=== PATIENT | male | born 1930 | race Caucasian/White ===

== ENCOUNTER 2016-11-13 06:48 | Inpatient (IN) | payer MEDICARE, BC ==
[~2016-11-13] VITALS: Ht 185.4 cm; Wt 49.4 kg
[~2016-11-13 06:48] MED LIST: BACTRIM DS TABL1 TAB PO; BAYER CHEWABLE81 MG PO; FISH OIL 1,0001 CA1 PO; IPRAT-ALBUT 0.5-3 ML INH; IPRAT-ALBUT 0.5-3 ML UPD; MACRODANTIN100 MG PO; MULTIPLE VITAMI1 TA1 PO; PEPCID20 MG PO; PRAVACHOL20 MG PO; PRAVACHOL40 MG PO; SOLU-MEDRO40 MG/1 M1 IV; STERAPRED DS 1210 MG PO; TYLENOL W/CODEI1 TAB PO; VITAMIN E100 UNIT PO
--- NOTE | 2016-11-13 10:30 | NUR ---
ADMITTED TO ROOM 2223 VIA CART FROM ER COLOR PALE SKIN WARM AND DRY AT PRESENT.GUARDING RT THIGH SOME SWELLING NOTED AND TENDERNESS ALSO DAUHTER AT BEDSIDE ASSESSMENT COMPLETE.
[2016-11-13 10:33] VITALS: BP 138/68
[2016-11-13] MEDS ORDERED: FLOMAX0.4 MG PO (10:40)
[2016-11-13] MEDS ORDERED: FLUTICASONE PRO16 GM NASAL (10:40)
[2016-11-13] MEDS ORDERED: ATIVAN0.5 MG PO (10:41)
[2016-11-13] MEDS ORDERED: PROZAC10 MG PO (10:41)
[2016-11-13] MEDS ORDERED: ULTRAM50 MG PO (10:42)
[2016-11-13 11:33] VITALS: BP 138/68
--- NOTE | 2016-11-13 12:27 | NUR ---
QUIET IN ROOM AT PRESENT DENIES ANY NEEDS DAUGHTER AT BEDSIDE AT THIS TIME.
[2016-11-13 12:35] VITALS: BP 125/77
--- NOTE | 2016-11-13 13:41 | NUR ---
QUIET IN ROOM AT PRESENT DENIES ANY NEEDS AT SIDE.
--- NOTE | 2016-11-13 15:32 | NUR ---
UP AMB IN HALLWAY WITH IV WITH MOM AND DAD AT PRESENT.
--- NOTE | 2016-11-13 15:34 | NUR ---
DAUGHTER AT BEDSIDE AT PRESENT DENIES ANY NEEDS AT THIS TIME.
[2016-11-13 15:53] VITALS: BP 111/66
--- NOTE | 2016-11-13 16:05 | NUR ---
PT CONT TO C/O PAIN IN RT THIGH AREA.
--- NOTE | 2016-11-13 16:15 | NUR ---
Patient Name: SALAS RAMOS Admission Status: ER Accout number: [id number] Admission Date: 11-13-2016 : 1928 Admission Diagnosis: Attending: EAN Current LOS: 1 Anticipated DC Date: 11-15-2016 Planned Disposition: Home with Home Health Primary Insurance: MEDICARE A & B Discharge Planning Comments: CM MET WITH PATIENT REGARDING D/C NEEDS AND PLANS. PATIENT LIVES ALONE AND HIS DAUGHTER LAMINE CHECKS ON HIM DAILY. PATIENT HAS A RAMP TO ENTER HOME AND NO STEPS INSIDE. PATIENT IS INDEPENDENT WITH HIS CARE AND HAS A WALKER, SHOWER CHAIR, OXYGEN, NEBULIZER, AND PORTABLE O2 AT HOME. PATIENT USES OXYGEN AT HS. PATIENTS PCP DR. WAKEFIELD AND PHARMACY IS [facility] ON [facility] IN [place]. PATIENT IS CURRENT WITH [facility]. CM WILL CONTINUE TO FOLLOW PATIENT WITH D/C NEEDS AND PLANS. PCP DR[facility] IN [place]- [phone] LAMINE (DAUGHTER) [phone] Dumper Mold Cleaner: Yaneth Pablo Is the patient Alert and Oriented? Yes 0 * How many steps to enter\exit or inside your home? RAMP 0 * PCP DR. WAKEFIELD 0 * Pharmacy [facility] IN [place] 0 * Preadmission Environment Home Alone 0 * ADLs Independent 0 * Equipment Nebulizer Oxygen Shower Chair Walker 0 * Other Equipment PORTABLE OXYGEN 0 * List name and contact numbers for known caregivers / representatives who currently or will assist patient after discharge: LAMINE (DAUGHTER) [phone] 0 * Community resources currently utilized Home Health 0 * Please name any agencies selected above. [facility] 0 * Additional services required to return to the preadmission environment? Yes 0 * Can the patient safely return to the preadmission environment? Yes 0 * Has this patient been hospitalized within the prior 30 days at any hospital? No 0 Grand Total: 0
--- NOTE | 2016-11-13 17:06 | NUR ---
STATUS REMAINS UNCHGD AT PRESENT.
[2016-11-13 20:20] VITALS: BP 91/54
--- NOTE | 2016-11-13 20:35 | NUR ---
PT IS A&OX4 RESTING IN BED, FAMILY AT BEDSIDE. PT DENIES NEEDS AT THIS TIME. BED LOW. CL IN REACH.
[2016-11-14 00:36] VITALS: BP 115/72
[2016-11-14 04:34] VITALS: BP 142/79
[2016-11-14 05:34] LABS: BASOPHILS 0.3 % (0.0-2.0); EOSINOPHILS 0.4 % (0-7); HEMATOCRIT 39.5 % (42.0-54.0); HEMOGLOBIN 13.1 g/dL (13.5-17.5); IMMATURE GRANULOCYTES 0.1 % (0-5); LYMPHOCYTES 24.2 % (15-50); MCH 32.7 pg (26.0-34.0); MCHC 33.2 g/dL (31.0-37.0); MCV 98.5 fL (80.0-100.0); MEAN PLATELET VOLUME 9.7 fL (7.4-10.4); MONOCYTES 12.4 % (2-11); NEUTROPHILS 62.6 % (40-80); RBC 4.01 10x6/uL (4.20-6.10); RDW 13.7 % (11.5-14.5)
[2016-11-14 05:35] LABS: PLATELET COUNT 121 10x3/uL (130-400)
[2016-11-14 05:47] LABS: ANION GAP 10.1 mmol/L (8-16); CALCIUM 10.3 mg/dL (8.5-10.1); CARBON DIOXIDE 29.5 mmol/L (21.0-32.0); CREATININE - SERUM 1.2 mg/dL (0.6-1.3); POTASSIUM - SERUM 4.6 mmol/L (3.5-5.1)
[2016-11-14 10:06] VITALS: BP 136/84
[2016-11-14 10:33] VITALS: Ht 185.4 cm; Wt 49.4 kg
--- NOTE | 2016-11-14 12:15 | NUR ---
FAMILY AT SIDE. PT WITHOUT DISTRESS.CALL LIGHT IN REACH
[2016-11-14 13:01] VITALS: BP 123/76
--- NOTE | 2016-11-14 14:25 | NUR ---
FAMILY AT BEDSIDE,REMAINS WITHOUT NEEDS.CALL LIGHT IN REACH
--- NOTE | 2016-11-14 16:10 | HP ---
PATIENT: SALAS RAMOS MEDICAL RECORD: [id number] ACCOUNT: [id number] LOCATION:[id number] : [birth year] ADMISSION DATE: 11/13/16 HISTORY AND PHYSICAL EXAMINATION DATE OF ADMISSION: 11/13/2016 CHIEF COMPLAINT: Right leg and hip pain. HISTORY OF PRESENT ILLNESS: This 86-year-old white male was found on the bathroom floor by his daughter and was brought in via EMS. He had fallen down. He denied any chest pain, palpitations or aura before the fall. He was brought into the ER where x-rays were done of the right femur and right hip, and there were no fractures seen, but the patient is not able to get up and stand and walk and take care of himself. He lives alone right now. His daughter lives nearby. He is admitted for further evaluation. PAST MEDICAL HISTORY AND PAST SURGICAL HISTORY: He fell in July 2016, suffered odontoid fracture and compression fracture of T4. He was in rehab for a while before getting out. He has a history of coronary artery disease, hypertension, COPD, hyperlipidemia, and basal cell cancer. HABITS: He is a current everyday smoker. Denies alcohol or drug use. SOCIAL HISTORY: He is retired, , lives alone. FAMILY HISTORY: Significant for heart disease, hypertension, hyperlipidemia and cancer. REVIEW OF SYSTEMS: GENERAL: No major weight changes. HEENT: No particular sinus or allergy problems. RESPIRATORY: He has COPD and continues to smoke. CARDIAC: He denies any chest pain or palpitations, but has a known history of coronary artery disease with stents. GASTROINTESTINAL: Denies diarrhea, but does have some constipation. GENITOURINARY: No significant problems there. MUSCULOSKELETAL: He has joint aches and pains and wears a soft collar since his fall and neck fracture in July 2016. NEUROLOGIC: No seizures or migraine headaches. PSYCHIATRIC: He has some anxiety and depression. PHYSICAL EXAMINATION: VITAL SIGNS: Temperature 97.5, pulse 65, respirations 18, and blood pressure 118/67. GENERAL: This is a thin elderly white male who is awake, alert, does not appear in acute distress. HEENT: Grossly within normal limits. NECK: Supple. No bruit. HEART: Regular rate and rhythm without murmur. LUNGS: Clear, but distant breath sounds. ABDOMEN: Soft. EXTREMITIES: No edema. He has some tenderness in the right hip and right mid leg, minimal swelling is noted there. No ecchymosis. HISTORY AND PHYSICAL [id number] SALAS RAMOS IMAGING: X-ray done of the hip showed no acute fracture. X-ray done of the right femur showed no acute fracture. ASSESSMENT: 1. Fall with right hip and leg pain. 2. Frailty. 3. Chronic obstructive pulmonary disease. PLAN: We will have physical therapy walk him, may need to get a CT or bone scan to see for underlying fractures that cannot be seen with routine x-rays. Other tests and procedures as warranted. TRANSINT:[id number] Voice Confirmation ID: [id number] DOCUMENT ID: [id number] DMITRY WAKEFIELD MD at 1610 CC: [id number] DICTATION DATE: 11/14/16 1358 BATTERY CONTAINER INSPECTOR: 11/14/16 1430 ADM IN [facility] [address] [place] [address]
--- NOTE | 2016-11-14 16:49 | NUR ---
INFORMED FAMILY AND PT OF RIGHT HIP FX PER .PT TO BE NPO AT MIDNIGHT. TO LOOK AT CT SCAN RESULTS
--- NOTE | 2016-11-14 18:22 | NUR ---
REMAINS WITHOUT NEEDS,WITHOUT CCHANGE.CONT PLAN OF CARE
[2016-11-14 18:48] VITALS: BP 117/69
[2016-11-14 20:00] VITALS: BP 102/67
[2016-11-14 20:47] LABS: APPEARANCE CLEAR (CLEAR); BILIRUBIN NEGATIVE (NEGATIVE); COLOR YELLOW (YELLOW); GLUCOSE NEGATIVE (NEGATIVE); KETONE NEGATIVE (NEGATIVE); LEUKOCYTE ESTERASE NEGATIVE (NEGATIVE); NITRITE NEGATIVE (NEGATIVE); PROTEIN NEGATIVE (NEGATIVE); UROBILINOGEN NORMAL (NORMAL)
[2016-11-15] VITALS (17 sets, daily range): BP systolic 87–147; BP diastolic 54–87
--- NOTE | 2016-11-15 00:20 | NUR ---
RESTING WITH EYES CLOSED, RESP WITH EASE, IN NPO STATUS FOR SCHEDULED SURGERY, CL IN REACH
[2016-11-15 05:33] LABS: BASOPHILS 0.1 % (0.0-2.0); EOSINOPHILS 0.9 % (0-7); HEMATOCRIT 39.2 % (42.0-54.0); HEMOGLOBIN 13.2 g/dL (13.5-17.5); IMMATURE GRANULOCYTES 0.3 % (0-5); LYMPHOCYTES 19.6 % (15-50); MCH 32.4 pg (26.0-34.0); MCHC 33.7 g/dL (31.0-37.0); MEAN PLATELET VOLUME 9.6 fL (7.4-10.4); MONOCYTES 11.3 % (2-11); NEUTROPHILS 67.8 % (40-80); PLATELET COUNT 120 10x3/uL (130-400); RBC 4.07 10x6/uL (4.20-6.10); RDW 13.5 % (11.5-14.5); WBC 7.6 10x3/uL (4.8-10.8)
[2016-11-15 05:47] LABS: MCV 96.3 fL (80.0-100.0)
[2016-11-15 05:53] LABS: ANION GAP 11.4 mmol/L (8-16); CALCIUM 10.4 mg/dL (8.5-10.1); CARBON DIOXIDE 27.4 mmol/L (21.0-32.0); CREATININE - SERUM 1.1 mg/dL (0.6-1.3)
[2016-11-15 05:58] LABS: POTASSIUM - SERUM 3.8 mmol/L (3.5-5.1)
[2016-11-15 06:58] LABS: INR 0.98 (0.85-1.17); PROTIME 12.8 SECONDS (11.6-15.0)
--- NOTE | 2016-11-15 07:30 | NUR ---
ASSESSMENT PER FLOW SHEET.PT WITHOUT DISTRESS.NPO FOR SURGERY.HEPI CLENS COMPLETED BY TRUCK DRIVER FLATBED,CONSENTS ON CHART.CALL LIGHT IN REACH
--- NOTE | 2016-11-15 07:45 | NUR ---
TO OR VIA BED
--- NOTE | 2016-11-15 10:15 | NUR ---
BACK FROM OR.DRESSING RIGHT HIP MOHAN,DRY AND INATCT.MONITOR FOR CHANGE.
--- NOTE | 2016-11-15 18:55 | NUR ---
REMAINS WITHOUT CHANGE.PAIN CONTROLLED.CONT PLAN OF CARE
--- NOTE | 2016-11-16 03:33 | NUR ---
PATIENT SLEEPING IN BED, DAUGHTER AT BEDSIDE. DRESSING TO RIGHT HIP IS INTACT WITH SMALL AMOUNT OF STRIKE TROUGH. ICE PACK APPLIED TO SITE. DILADID ANIMAL RIDES MANAGER IS CONTROLLING THE PAIN, SOME CONFUSION NOTE BY PATIENT'S ACTIONS. ON 2LPM O2 VIA NC WITH CO2 MONITOR. ABRASION NOTED TO RIGHT ELBOW WITH STERI STRIPS, BLANCHABLE RED BOTTOM. BED IN LOWEST LOCKED POSITION X2 BEDRAILS UP, HOB AND FOB ELEVATED, CALL LIGHT WITHIN REACH.
[2016-11-16 05:54] VITALS: BP 104/61
[2016-11-16 06:44] LABS: HEMATOCRIT 34.4 % (42.0-54.0); HEMOGLOBIN 11.6 g/dL (13.5-17.5); MCH 32.7 pg (26.0-34.0); MCHC 33.7 g/dL (31.0-37.0); MCV 96.9 fL (80.0-100.0); RBC 3.55 10x6/uL (4.20-6.10); RDW 13.4 % (11.5-14.5); WBC 4.6 10x3/uL (4.8-10.8)
--- NOTE | 2016-11-16 07:20 | NUR ---
WALKING ROUNDS,WITHOUT DISTRESS.CALL LIGHT IN REACH.FAMILY AT SIDE
[2016-11-16 08:47] VITALS: BP 94/59
--- NOTE | 2016-11-16 09:00 | NUR ---
ASSESSMENT PER FLOW SHEET.PT WITHOUT DISTRESS.CALL LIGHT IN REACH
--- NOTE | 2016-11-16 10:05 | NUR ---
Rehab Prescreening Consult recieved and the chart has been reviewed. He is POD#1. Rehab will follow his progress with PT and re-eval. Denise Hernandez RN Clinical Liaison, Rehab
--- NOTE | 2016-11-16 12:00 | NUR ---
FAMILY AT SIDE,WITHOUT DISTRESS.CALL LIGHT IN REACH
[2016-11-16 12:38] VITALS: BP 95/60
--- NOTE | 2016-11-16 14:01 | NUR ---
NON STICK DRESSING TO RIGHT ELBOW ON SKIN TEAR.STERI STRIPS HAVE CAME OFF.
[2016-11-16 16:48] VITALS: BP 81/54
--- NOTE | 2016-11-16 18:00 | NUR ---
REMAINS WITHOUT NEEDS,WITHOUT DISTRESS.CONT PLAN OF CARE
--- NOTE | 2016-11-16 20:15 | NUR ---
PATIENT SITTING UP IN BED SHAVING. ALERT. NO SIGNS OF DISTRESS. RESPIRATIONS EVEN AND UNLABORED. DAUGHTER PRESENT. DENIES ANY NEEDS AT THIS TIME. BED LOW. CALL LIGHT IN REACH. BED ALARM ON. SCD'S ON.
[2016-11-16 21:00] VITALS: BP 116/69
[2016-11-17 01:00] VITALS: BP 120/52
--- NOTE | 2016-11-17 04:07 | NUR ---
PT IN BED WITH NO NEEDS AND NO DISTRESS AT THIS TIME. SIDE RAILS ARE UP X 2. BED IS LOW. CALL LIGHT IS IN REACH.
[2016-11-17 05:00] VITALS: BP 111/69
[2016-11-17 05:53] LABS: HEMATOCRIT 29.8 % (42.0-54.0); HEMOGLOBIN 10.1 g/dL (13.5-17.5); MCH 32.6 pg (26.0-34.0); MCHC 33.9 g/dL (31.0-37.0); MCV 96.1 fL (80.0-100.0); RBC 3.1 10x6/uL (4.20-6.10); RDW 13.2 % (11.5-14.5); WBC 5.1 10x3/uL (4.8-10.8)
--- NOTE | 2016-11-17 07:15 | NUR ---
REPORT RECEIVED FROM TECHNICAL SPECIALIST CYTOLOGY NURSE. CALL LIGHT IN REACH.
[2016-11-17 08:08] VITALS: BP 128/58
--- NOTE | 2016-11-17 09:06 | NUR ---
PT UP IN CHAIR WITH PT WITH SOFT COLLAR IN PLACE N/C VOICED AT PRESENT.
--- NOTE | 2016-11-17 09:20 | NUR ---
ASSESSMENT COMPLETED. SCDs TO BLE. CALL LIGHT IN REACH. WILL CONTINUE WITH PLAN OF CARE.
--- NOTE | 2016-11-17 11:25 | NUR ---
MOSES PO WITH AM MEDS ADMINISTERED. CALL LIGHT IN REACH.
[2016-11-17 11:52] VITALS: BP 129/76
--- NOTE | 2016-11-17 13:07 | NUR ---
NUTRITION MONITORING & EVAL CHART REVIEWED. PT TOLERATING REG DIET. 50% INTAKE RECENT MEALS. DECLINES ENSURE. WILL CONTINUE TO PROVIDE DIET, MONITOR PT PROGRESS. RD FOLLOWING
--- NOTE | 2016-11-17 13:20 | NUR ---
RESTING WITH EYES CLOSED. CALL LIGHT IN REACH.
--- NOTE | 2016-11-17 14:50 | NUR ---
NO NEEDS VOICED AT THIS TIME. CALL LIGHT IN REACH.
[2016-11-17 15:40] VITALS: BP 99/63
--- NOTE | 2016-11-17 16:06 | NUR ---
NIETO CATH DC'D WITH TIP INTACT. DAUGHTER AT BEDSIDE. CALL LIGHT IN REACH.
--- NOTE | 2016-11-17 18:16 | NUR ---
NO CHANGES IN INITIAL ASSESSMENT. DAUGHTER AT BEDSIDE. CALL LIGHT IN REACH. WILL CONTINUE WITH PLAN OF CARE.
[2016-11-17 20:00] VITALS: BP 130/68
--- NOTE | 2016-11-17 20:56 | NUR ---
PATIENT RESTING IN BED WATCHING TV. NO SIGNS OF DISTRESS NOTED. SCHEDULED MEDICATIONS GIVEN ORDERED. DENIES ANY NEEDS AT THIS TIME. FAMILY PRESENT. BED LOW. CALL LIGHT IN REACH. BED ALARM ON.
[2016-11-18] VITALS: BP 106/67
[2016-11-18 05:00] VITALS: BP 120/60
--- NOTE | 2016-11-18 07:56 | NUR ---
SLEEPING QUIETLY AT PRESENT DSG TO RT HIP CLEAN DRY INTACT AT PRESENT.FAMILY AT BEDSIDE.
[2016-11-18 08:14] VITALS: BP 116/75
--- NOTE | 2016-11-18 09:26 | NUR ---
Reviewed patient's chart for IRF. He meets criteria and has agreed to participate in the required therapy. He will be accepted today if physicians agree. The DENNISE Lerma will be made aware. Denise Hernandez RN Clinical Liaison, Rehab
[2016-11-18] MEDS ORDERED: LOVENOX40 MG/0.4 SC (10:50)
[2016-11-18] MEDS ORDERED: SENOKOT-S TABLE1 TAB PO (10:54)
[2016-11-18] MEDS ORDERED: MIRALAX17 GM PO (10:54)
[2016-11-18] MEDS ORDERED: TUMS500 MG PO (10:55)
[2016-11-18] MEDS ORDERED: COLACE100 MG PO (10:56)
[2016-11-18] MEDS ORDERED: ZOFRAN ODT4 MG/UDTAB PO (10:56)
[2016-11-18] MEDS ORDERED: HYDROCODON-ACE1 EAC7 PO (10:57)
--- NOTE | 2016-11-18 11:30 | NUR ---
CM REASSESSMENT NOTE: PATIENT IS DISCHARGING TO IP REHAB TODAY. FAMILY KNOWS PLAN FOR REHAB
[2016-11-18 11:45] VITALS: BP 119/69
--- NOTE | 2016-11-18 12:00 | NUR ---
DAUGHTER AT BEDSIDE QUIET N/C VOICED AT PRESENT DSG TO RT HIP IN PLACE BLISTER NOTED ABOVE INCISION SITE.
--- NOTE | 2016-11-18 14:00 | NUR ---
UP AMB IN HALLWAY WITH PT NICOLLE WELL AT PRESENT.
--- NOTE | 2016-11-18 14:50 | NUR ---
IV SLD REPORT CALLED TO FABRICE NURSE ON REHAB.
--- NOTE | 2016-11-18 16:17 | NUR ---
TO REHAB VIA W/C AT PRESENT 02 CONT AT 2L N/C AT PRESENT.
--- NOTE | 2016-11-19 08:25 | OP ---
PATIENT NAME: SALAS RAMOS MEDICAL RECORD: [id number] :[birth year] LOCATION:[id number] ADMISSION DATE:11/14/16 SURGEON: HARIS BARNETT MD DATE OF OPERATION: 11/15/2016 PREOPERATIVE DIAGNOSIS: Right intertrochanteric hip fracture. POSTOPERATIVE DIAGNOSIS: Right intertrochanteric hip fracture. PROCEDURE PERFORMED: Right hip Affixus nail placement. SURGEON: Keaton Barnett MD ANESTHESIA: General. ESTIMATED BLOOD LOSS: About 100 mL. CONDITION: He tolerated the procedure well, was transferred to the recovery room in stable condition at termination of the procedure. INDICATIONS: This is an 86-year-old gentleman who has had a fall. He has had significant pain and his plain films did not show distinct fracture, but his CT scan showed a very distinct intertrochanteric fracture. We discussed the options and elected to go ahead and fixate this. We discussed risks, benefits, and alternatives and wished to proceed. OPERATIVE REPORT: The patient was taken to the operating room and placed in supine position. General anesthesia was obtained. He was then placed on the fracture table. Left leg was placed in the down the other way, positioned the right leg in the up position, no traction was placed. He did receive Ancef per protocol. He was then prepped and draped in normal fashion. C-arm was brought in, small incision was made proximally. The IT band was split, trocar was placed into the greater trochanter. This was opened up with the reamers and following which, a short Affixus nail was placed, an 11 x 180. It was then locked into place with a 10.5 x 115 lag screw and a 42-mm cortical screw distally. X-rays were taken verifying its position. I then irrigated and closed with #1 Vicryl followed by 2-0 Vicryl, then néstor. He was awakened and transferred to the recovery room in stable condition, having tolerated the procedure well. TRANSINT:[id number] Voice Confirmation ID: [id number] DOCUMENT ID: [id number] HARIS BARNETT MD at 0825 CC: [id number] DICTATION DATE: 11/15/16 0905 RESEARCH PHYSIOLOGIST: 11/15/16 1018 DIS IN 11/18/16 [place] [id number] [facility] [place] [id number]
== END 2016-11-18 16:22 | DRG 480 ==
LOC: D.ER 06:48 → D.MS 09:50 → OBSVTIME 09:50 → D.MS 11-14 19:13
PROVIDERS: Orthopaedic Surgery Sports Medicine; ADMIT Family Medicine
PROC: 0QH636Z Insertion of Intramedullary Internal Fixation Device into Right Upper Femur, Percutaneous Approach (ICD-10-PCS; principal; 2016-11-15 08:00)
DX: S72.141A Displaced intertrochanteric fracture of right femur, initial encounter for closed fracture (principal); E43 Unspecified severe protein-calorie malnutrition; Z68.1 Body mass index [BMI] 19.9 or less, adult; W19.XXXA Unspecified fall, initial encounter; R54 Age-related physical debility; J44.9 Chronic obstructive pulmonary disease, unspecified; I25.10 Atherosclerotic heart disease of native coronary artery without angina pectoris; H35.30 Unspecified macular degeneration; F17.200 Nicotine dependence, unspecified, uncomplicated

== ENCOUNTER 2016-11-18 14:42 | Inpatient (IN) | payer MEDICARE, BC ==
[~2016-11-18] VITALS: Ht 185.4 cm; Wt 49.4 kg
[~2016-11-18 14:42] MED LIST changes: +ATIVAN0.5 MG PO; +COLACE100 MG PO; +FLOMAX0.4 MG PO; +FLUTICASONE PRO16 GM NASAL; +HYDROCODON-ACE1 EAC7 PO; +LOVENOX40 MG/0.4 SC; +MIRALAX17 GM PO; +PROZAC10 MG PO; +SENOKOT-S TABLE1 TAB PO; +TUMS500 MG PO; +ULTRAM50 MG PO; +ZOFRAN ODT4 MG/UDTAB PO
--- NOTE | 2016-11-18 16:40 | NUR ---
PT ARRIVED TO UNIT VIA WHEELCHAIR WITH NURSES AND DAUGHTER PT ASSISTED TO BED PT CALL LIGHT IN REACH NO PROBLEMS AT THIS TIME WILL KAROLINE
[2016-11-18 16:48] VITALS: BP 137/65
--- NOTE | 2016-11-18 17:44 | NUR ---
PT RESTING IN BED WITH FAMILY ALL AROUND HIM. STABLE CONDITION OBSERVED. NO SIGNS OF ANY DISCOMFORT OR DISTRESS. URINAL PROVIDED TO PT'S DAUGHTER ON HIS BEHALF. CALL LIGHT IS IN REACH. WILL BE MONITORING HIM AND ASSISTING PRN WITH ADL'S.
--- NOTE | 2016-11-18 19:20 | NUR ---
INTRODUCED SELF TO PT AND DAUGHTER, ASSISTED PT TO WHEELCHAIR WITH MOD ASSIST, WILL CONTINUE TO MONITOR, CALL LIGHT WITHIN REACH.
[2016-11-18 20:16] VITALS: BP 142/76
--- NOTE | 2016-11-18 20:27 | NUR ---
NIGHT MEDICATION GIVEN, ASSISTED PT BACK TO BED WITH MOD ASSIST, PT TOLERATED WELL, WILL CONTINUE TO MONITOR, CALL LIGHT WITHIN REACH.
--- NOTE | 2016-11-19 00:10 | NUR ---
PT RESTING QUIETLY, RESPIRATIONS EVEN, FAMILY AT BEDSIDE, BED IN LOW POSITION, SIDE RAILS UP X'S 3 PER PT REQEUEST, CALL LIGHT WITHIN REACH, WILL CONTINUE TO MONITOR.
--- NOTE | 2016-11-19 02:00 | NUR ---
RESTING QUEITLY IN BED, EYES CLOSED.
--- NOTE | 2016-11-19 04:10 | NUR ---
PATIENT JUST FINISHED USING URINAL. DAUGHTER ASSISTING HIM. REPORTS HIS OUTPUT OTHER THAN EARLIER INCONTINENCE/URINE SPILL HAS BEEN APPROX 500ML.
--- NOTE | 2016-11-19 05:30 | NUR ---
ASSISTED PATIENT UP TO W/C TO SIT FOR A FEW MINUTES FOR CHANGE OF POSITION.
[2016-11-19 06:00] LABS: BASOPHILS 0.2 % (0.0-2.0); HEMATOCRIT 28.4 % (42.0-54.0); HEMOGLOBIN 9.7 g/dL (13.5-17.5); IMMATURE GRANULOCYTES 0.2 % (0-5); MCH 32.8 pg (26.0-34.0); MCHC 34.2 g/dL (31.0-37.0); MCV 95.9 fL (80.0-100.0); MEAN PLATELET VOLUME 9.5 fL (7.4-10.4); MONOCYTES 13.8 % (2-11); NEUTROPHILS 64.8 % (40-80); RBC 2.96 10x6/uL (4.20-6.10); RDW 13.3 % (11.5-14.5); WBC 5.1 10x3/uL (4.8-10.8)
[2016-11-19 06:03] LABS: PLATELET COUNT 179 10x3/uL (130-400)
[2016-11-19 06:31] LABS: CALC OSMOLALITY 285 mosm/kg (275-300); CALCIUM 10.6 mg/dL (8.5-10.1); CARBON DIOXIDE 23.9 mmol/L (21.0-32.0); CHLORIDE - SERUM 109 mmol/L (98-107); GLUCOSE 84 mg/dL (74-106); POTASSIUM - SERUM 3.4 mmol/L (3.5-5.1); SODIUM 142 mmol/L (136-145); UREA NITROGEN 25 mg/dL (7-18); eGFR NON AFRICAN AMERICAN 75 mL/min (90-120)
--- NOTE | 2016-11-19 07:27 | NUR ---
RESTING QUIETLY IN BED. CALL LIGHT IN REACH
--- NOTE | 2016-11-19 08:15 | NUR ---
PT RESTING IN BED WITH EYES OPEN CALL LIGHT IN REACH NO PROBLEMS WILL MONITER
[2016-11-19 10:20] VITALS: Ht 185.4 cm; Wt 49.4 kg
[2016-11-19 11:16] VITALS: BP 121/73
--- NOTE | 2016-11-19 13:48 | NUR ---
PT RESTING IN BED WITH EYES OPEN CALL LIGHT IN REACH NO PROBLEMS WILL MONITER
--- NOTE | 2016-11-19 17:49 | NUR ---
PT RESTING IN BED WITH EYES OPEN DAUGHTER IN ROOM CALL LIGHT IN REACH WILL MONITER
[2016-11-19 18:50] VITALS: BP 130/76
--- NOTE | 2016-11-19 19:10 | NUR ---
PATIENT IN BED. 2 FEMALE FAMILY VISITORS AT BEDSIDE. PATIENT DENIES NEEDS AT THIS TIME.
--- NOTE | 2016-11-19 21:10 | NUR ---
CLEANSED PATIENT FROM URINE INCONTINENCE. CHANGED MEPILEX DRESSINGS TO 3 CLIPPED INCISIONS OF RIGHT HIP ORIF, PAINTING EACH WITH BETADINE PRIOR TO APPLYING FRESH BORDERED GAUZE DRESSINGS. INCISIONS ARE C/D/I AT THIS TIME. NO REDNESS NOTED. ASSESSMENT AND HS MEDS THEN COMPLETED. DAUGHTER STAYING IN ROOM WITH PATIENT AND ASSISTING WITH HIS CARE.
--- NOTE | 2016-11-19 22:10 | NUR ---
REMAINS IN BED, RESITNG QUIETLY, EYES CLOSED.
--- NOTE | 2016-11-20 | NUR ---
PATIENT RESTLESS. NOT SLEEPING WELL. GAVE PATIENT ATIVAN 0.5MG PO PER PRN ORDER.
--- NOTE | 2016-11-20 02:25 | NUR ---
PATIENT AWAKE. NO COMPLAINTS AT THIS TIME.
--- NOTE | 2016-11-20 04:30 | NUR ---
IN BED, EYES CLOSED. RESPIRATION ARE QUIET AND UNLABORED.
--- NOTE | 2016-11-20 06:16 | NUR ---
CONTINUES IN BED, RESTING QUIETLY, EYES CLOSED.
[2016-11-20 07:07] LABS: BASOPHILS 0.3 % (0.0-2.0); EOSINOPHILS 0.6 % (0-7); HEMATOCRIT 31.4 % (42.0-54.0); HEMOGLOBIN 10.6 g/dL (13.5-17.5); IMMATURE GRANULOCYTES 0.3 % (0-5); LYMPHOCYTES 9.9 % (15-50); MCH 32.3 pg (26.0-34.0); MCHC 33.8 g/dL (31.0-37.0); MCV 95.7 fL (80.0-100.0); MEAN PLATELET VOLUME 9.1 fL (7.4-10.4); MONOCYTES 10.4 % (2-11); NEUTROPHILS 78.5 % (40-80); PLATELET COUNT 214 10x3/uL (130-400); RBC 3.28 10x6/uL (4.20-6.10); RDW 13.1 % (11.5-14.5)
[2016-11-20 07:23] LABS: ANION GAP 12.5 mmol/L (8-16); CALCIUM 11.1 mg/dL (8.5-10.1); CARBON DIOXIDE 25.9 mmol/L (21.0-32.0); CREATININE - SERUM 1.1 mg/dL (0.6-1.3); POTASSIUM - SERUM 3.4 mmol/L (3.5-5.1)
[2016-11-20 07:51] VITALS: BP 130/70
--- NOTE | 2016-11-20 08:00 | NUR ---
SITTING UP IN BED.FAMILY AT BEDSIDE.CL IN REACH.
--- NOTE | 2016-11-20 13:56 | NUR ---
Nutrition Follow Up: Chart reviewed. Pt is eating 36% on a Regular diet. Current wt is 109#. +BM 11/19/16. Meds: DESTINY Miller, Issa. Rec continue current diet and appetite stimulant. Will send Ensure with meals. RD following.
--- NOTE | 2016-11-20 16:07 | NUR ---
PT RESTING IN BED WITH EYES OPEN CALL LIGHT IN REACH NO PROBLEMS WILL MONITER
[2016-11-20 19:47] VITALS: BP 125/73
--- NOTE | 2016-11-20 20:05 | NUR ---
FAMILY PRESENT VISITING WITH PATIENT, WILL ASSIST WITH COMPLETING HIS MENU. PT DENIES ANY NEEDS, NO S/S OF ACUTE DISTRESS.
--- NOTE | 2016-11-21 01:20 | NUR ---
pt spilled urine in bed, linen change.
--- NOTE | 2016-11-21 06:40 | NUR ---
pt inquired about admin of flonase 30 min after meals, shared that was how it was scheduled. repositioned in bed, daughter pleasant.
[2016-11-21 07:00] VITALS: BP 127/70
--- NOTE | 2016-11-21 07:00 | NUR ---
Pt. was received at the beginning of this shift in bed awake and oriented x 2. Daughter at bedside. Pt. is total care with all adl's. Will be monitoring pt. and assisting prn with adl's. No voiced complaints at this time or signs of distress. Call light in reach.
--- NOTE | 2016-11-21 18:36 | NUR ---
Pt. did therapy with therapist this morning and requested pain medication during his session. He was given Ultram 50mg at 10:40am. No further complaints of pain to note.
--- NOTE | 2016-11-21 19:26 | NUR ---
pt daughter at bedside, daughter states she is going to try to get him to eat his magic cup in a bit. pt denies any needs at this point.
[2016-11-21 20:00] VITALS: BP 119/75
--- NOTE | 2016-11-22 00:13 | NUR ---
FAMILY MEMBER RESTING QUIETLY IN PATIENTS ROOM, PT HAS EYES CLOSED, RESPIRATIONS REGULAR AND UNLABORED.
[2016-11-22 07:00] VITALS: BP 137/76
--- NOTE | 2016-11-22 07:15 | NUR ---
pt up in w/c, daughter pushing down halls, denied bm.
--- NOTE | 2016-11-22 08:00 | NUR ---
PATIENT SITTING UP AT THE SIDE OF THE BED FOR BREAKFAST. ALERT/ORIENT X4. CALL LIGHT WITHIN REACH. VOICES NO NEEDS
--- NOTE | 2016-11-22 10:25 | NUR ---
PATIENT HELPED UP TO WHEELCHAIR WITH MOD ASST OF TWO. BUTTOM AND MED CENTER BACK RED, BLACHABLE. MEPILEX DRESSING APPLIED.
--- NOTE | 2016-11-22 12:00 | NUR ---
SITTING UP IN BED EATING LUNCH.CG AT BEDSIDE ASSISTING.CL IN REACH.
--- NOTE | 2016-11-22 15:07 | NUR ---
PATIENT LYING IN BED. RESTING. THIS NURSE GAVE PATIENT SOME PRUNE JUICE. PATIENT STATES HE DOES NOT EAT MUCH AND DOES NOT WANT A DUCOLAX SUPP GIVEN. SIX DAYS SINCE LAST BOWEL MOVEMENT. PATIENT ON COLACE, MIRALAX AND SENOKOTO-S SCHEDULED.
--- NOTE | 2016-11-22 18:19 | NUR ---
PATIENT GIVEN A DUCOLAX SUPP.
--- NOTE | 2016-11-22 19:15 | NUR ---
PT USED BEDPAN AND HAD A MOD BM, SOFT AND FORMED. PT DENIES NEEDS AT THIS TIME.
--- NOTE | 2016-11-22 20:10 | NUR ---
PT HS MEDS GIVEN. PT DENIES FURTHUR NEEDS. WCTM. BED LOW. CL IN [facility].
[2016-11-22 20:39] VITALS: BP 97/56
--- NOTE | 2016-11-23 00:09 | NUR ---
PT RESTING, EYES CLOSED. BED LOW. CL IN REACH.
--- NOTE | 2016-11-23 02:40 | NUR ---
PT RESTING EYES CLOSED. RR ARE EVEN AND UNLABORED. WCTM. BED LOW. CL IN REACH.
[2016-11-23 06:43] LABS: CALC OSMOLALITY 297 mosm/kg (275-300); CALCIUM 10.3 mg/dL (8.5-10.1); CHLORIDE - SERUM 112 mmol/L (98-107); GLUCOSE 104 mg/dL (74-106); POTASSIUM - SERUM 3.4 mmol/L (3.5-5.1); SODIUM 146 mmol/L (136-145); UREA NITROGEN 31 mg/dL (7-18); eGFR NON AFRICAN AMERICAN 75 mL/min (90-120)
[2016-11-23 06:55] LABS: BASOPHILS 0.4 % (0.0-2.0); EOSINOPHILS 2.4 % (0-7); HEMOGLOBIN 10.3 g/dL (13.5-17.5); IMMATURE GRANULOCYTES 0.2 % (0-5); LYMPHOCYTES 16.1 % (15-50); MCH 32.8 pg (26.0-34.0); MCHC 33.2 g/dL (31.0-37.0); MCV 98.7 fL (80.0-100.0); MEAN PLATELET VOLUME 9.2 fL (7.4-10.4); MONOCYTES 9.8 % (2-11); NEUTROPHILS 71.1 % (40-80); RBC 3.14 10x6/uL (4.20-6.10); RDW 14.1 % (11.5-14.5); WBC 8.5 10x3/uL (4.8-10.8)
[2016-11-23 07:00] LABS: PLATELET COUNT 277 10x3/uL (130-400)
[2016-11-23 07:52] VITALS: BP 117/75
--- NOTE | 2016-11-23 08:07 | NUR ---
PATIENTS DAUGHTER IN ROOM. HELPING PATIENT TO EAT BREAKFAST. PATIENT IS ALERT/ORIENT. CALL LIGHT WITHIN REACH. VOICES NO NEEDS AT THIS TIME
--- NOTE | 2016-11-23 10:26 | NUR ---
PATIENT IN REHAB ROOM. WORKING WITH PHYSICAL THERAPIST. DENIES ANY PAIN/DISC AT THIS TIME
--- NOTE | 2016-11-23 11:36 | NUR ---
PATIENT IN REHAB ROOM. WORKING WITH OCCUPATIONAL THERAPIST. C/O OF BACK AND BOTTOM PAIN. KARY MCLEOD
--- NOTE | 2016-11-23 14:24 | NUR ---
PATIENT WORKING WITH OCCUPATIONAL THERAPIST
--- NOTE | 2016-11-23 18:11 | NUR ---
PATIENT IS A MOD ASST OF TWO FROM BED TO WHEELCHAIR
--- NOTE | 2016-11-23 19:10 | NUR ---
PT IN BED WITH DAUGHTER AT BED SIDE. NO COMPLAINTS OR CONCERNS MADE KNOWN AT THIS TIME. WATER AND CALL LIGHT IN REACH. WILL CONTINUE TO OBSERVE.
[2016-11-23 19:15] VITALS: BP 104/60
--- NOTE | 2016-11-23 21:05 | NUR ---
PT IN BED WITH EYES CLOSED AND CHEST RISING. RESPIRATIONS EVEN AND UNLABORED. DAUGHTER AT BED SIDE IN CHAIR. NO CONCERNS MADE KNOWN AT THIS TIME. WILL CONTINUE TO OBSERVE.
--- NOTE | 2016-11-23 23:30 | NUR ---
PT IN BED WITH EYES CLOSED AND CHEST RISING. NO SIGN/SYMPTOMS OF DISTRESS NOTED AT THIS TIME. CALL LIGHT IN REACH. WILL CONTINUE TO OBSERVE.
--- NOTE | 2016-11-24 01:40 | NUR ---
IN BED WITH EYES CLOSED AND CHEST RISING. RESPIRATIONS EVEN AND UNLABORED. DAUGHTER IN OTHER BED IN ROOM. NO CONCERNS AT THIS TIME. CALL LIGHT IN REACH. WILL CONTINUE TO OBSERVE.
--- NOTE | 2016-11-24 03:40 | NUR ---
PT IN BED WITH EYES CLOSED AND CHEST RISING. RESPIRATIONS EVEN AND UNLABORED. NO CONCERNS NOTED AT THIS TIME. CALL LIGHT IN REACH. WILL CONTINUE TO OBSERVE.
--- NOTE | 2016-11-24 06:57 | NUR ---
PT IN BED WITH EYES OPEN. NO CONCERNS. RECEIVED 0700 MEDICATION WITHOUT DIFFICULTY. CALL LIGHT IN REACH.
--- NOTE | 2016-11-24 08:15 | NUR ---
PT RESTING IN BED WITH EYES OPEN CALL LIGHT IN REACH WILL MONITER
[2016-11-24 08:44] VITALS: BP 120/65
--- NOTE | 2016-11-24 13:32 | NUR ---
Nutrition Follow Up: Pt was asleep at the time of RD visit. Spoke with pt's daughter who reported that pt has not had an appetite for a long time. She said that due to his stomach surgery (not recent) he cannot eat a large amount at one time. She said that pt does not like sweet things and does not like Ensure. Daughter reported that pt does like to snack in between meals. She requested that a Magic Cup be sent on each tray so that pt can have this between meals. Pt is eating 38% meal avg on a regular diet. Pt is receiving Ensure with meals. +BM 11/23/16. No new wt to assess. Meds noted including Megace, MV, Zofran. Labs noted. Pt continues with poor po intake. Rec continue current diet. Will d/c Ensure per pt request and add magic cup TID. Rec continue appetite stimulant. RD following.
--- NOTE | 2016-11-24 16:16 | NUR ---
spoke with adam and she and her sister will tour facilities for possible admission for patient. daughter will attend meeting on 11/25/16.
--- NOTE | 2016-11-24 16:51 | NUR ---
PT RESTING IN BED WITH EYES OPEN CALL LIGHT IN REACH NO PROBLEMS DAUGHTER IN ROOM
[2016-11-24 18:40] VITALS: BP 104/66
--- NOTE | 2016-11-24 19:30 | NUR ---
PT IN BED WITH FAMILY AT BEDSIDE. HOB ELEVATED. NO COMPLAINTS OF PAIN NOTED. CALL LIGHT IN REACH. WILL CONTINUE TO OBSERVE.
--- NOTE | 2016-11-24 22:43 | NUR ---
PT IN BED WITH EYES CLOSED AND CHEST RISING. RESPIRATIONS EVEN AND UNLABORED. NO SIGN/SYMPTOMS OF DISTRESS. CALL LIGHT IN REACH. WILL CONTINUE TO OBSERVE.
--- NOTE | 2016-11-25 00:34 | NUR ---
PT IN BED EASILY AROUSE UPON ENTRY. ASSISTED WITH POSITION CHANGE. NO COMPLAINTS OR REQUEST MADE. CALL LIGHT IN REACH. WILL CONTINUE TO OBSERVE.
--- NOTE | 2016-11-25 02:20 | NUR ---
C/O PAIN LEVEL OF 6/10 IN BACK. REPOSITIONED PATIENT UP IN BED AND GAVE HIM NORCO 5/325 X1 TAB PO.
--- NOTE | 2016-11-25 03:28 | NUR ---
PT IN BED WITH PAIN LEVEL AT 3/10 TO BACK NO OTHER NEEDS MADE KNOWN. WILL CONTINUE TO OBSERVE. CALL LIGHT IN REACH.
--- NOTE | 2016-11-25 06:38 | NUR ---
PT IN BED WITH EYES CLOSED AND EASILY AROUSED TO ENTRY. SCHEDULED MEDICATIONS RECEIVED WITHOUT DIFFICULTY. PT WASHED FACE AND REPOSITIONED. NO OTHER CONCERNS NOTED. CALL LIGHT IN REACH.
[2016-11-25 06:42] LABS: BASOPHILS 0.4 % (0.0-2.0); EOSINOPHILS 1.6 % (0-7); HEMATOCRIT 32.4 % (42.0-54.0); HEMOGLOBIN 10.6 g/dL (13.5-17.5); IMMATURE GRANULOCYTES 0.2 % (0-5); LYMPHOCYTES 13.3 % (15-50); MCH 32.1 pg (26.0-34.0); MCHC 32.7 g/dL (31.0-37.0); MCV 98.2 fL (80.0-100.0); MEAN PLATELET VOLUME 9.1 fL (7.4-10.4); MONOCYTES 5.7 % (2-11); NEUTROPHILS 78.8 % (40-80); PLATELET COUNT 320 10x3/uL (130-400); RDW 14.1 % (11.5-14.5)
[2016-11-25 06:51] LABS: WBC 11.3 10x3/uL (4.8-10.8)
[2016-11-25 06:56] LABS: ANION GAP 10.2 mmol/L (8-16); CALCIUM 10.3 mg/dL (8.5-10.1); CARBON DIOXIDE 27.3 mmol/L (21.0-32.0); CREATININE - SERUM 1.1 mg/dL (0.6-1.3); POTASSIUM - SERUM 3.5 mmol/L (3.5-5.1)
--- NOTE | 2016-11-25 08:00 | NUR ---
SITTING UP IN BED.DAUGHTER AT BEDSIDE.
[2016-11-25 08:08] VITALS: BP 109/65
--- NOTE | 2016-11-25 08:15 | NUR ---
PT RESTING IN BED WITH EYES OPEN CALL LIGHT IN REACH NO PROBLEMS DAUGHTER AT BEDSIDE ASSISTING WITH BREAKFAST TOLERATING WELL NO PROBLEMS WILL MONITER
--- NOTE | 2016-11-25 08:44 | RHP ---
PATIENT: SALAS RAMOS MEDICAL RECORD: [id number] ACCOUNT: [id number] [facility] Lu1111 : [birth year] ADMISSION DATE: 11/18/16 REHABILITATION HISTORY AND PHYSICAL EXAMINATION POST ADMISSION PHYSICIAN EXAMINATION DATE OF ADMISSION TO THE REHAB: 11/18/2016. ADMITTING DIAGNOSES: Right intertrochanteric fracture, status post gamma nail placement and also severe malnutrition of chronic illness. HISTORY OF PRESENT ILLNESS: The patient is a gentleman who is admitted to inpatient rehab status post a right ORIF due to recent fall. He is an 86-year-old gentleman who was found on the bathroom floor by his daughter. He was brought in via EMS. He had fallen down and he was brought to the ER where x-rays were done on the right femur and right hip and there were no fractures seen, but the patient not able to get up and stand and walk or take care of himself. He lives alone. He is admitted for further evaluation. With physical therapy, the patient continued not be able to bear weight on his right lower extremity and was only having pain relief when lying there. A CT of his right hip was done and found to have an acute minimally displaced intertrochanteric fracture of the right hip. He underwent an ORIF with gamma nail to the right hip on 11/15/2016. ____, he lives alone and was independent with a rolling walker. He has daughters that are very attentive to his care. Currently, he is moderate to max assist with ADLs and mobility. He would definitely need inpatient rehabilitation if he has any chance to returning back home and get into his prior level of functioning. COMORBIDITIES: Include emphysema, weight loss, hematuria, advanced age, swallowing difficulty, frequent falls, O2 dependence, coronary artery disease, hypertension, history of SC in the past, COPD, hyperlipidemia, basal cell cancer, macular degeneration, emphysema, TB. PAST MEDICAL HISTORY: Significant for coronary artery disease, hypertension, SC, COPD, hyperlipidemia, skin cancer, macular degeneration, emphysema, and TB. PAST SURGICAL HISTORY: Includes stomach surgery secondary to ulcers back in 1967. ALLERGIES: No known drug allergies. CURRENT MEDICATIONS: Include Flomax 0.4 daily, Pravachol 40 mg daily, MiraLax 17 grams in 8 ounces of water daily, multivitamin daily, Prozac 10 mg daily, Lovenox 40 mg subQ daily, aspirin chewable 81 mg daily, tramadol 50 mg q.4-6 hours p.r.n. pain. He is on as ____ as needed, Zofran ODT as needed for nausea and vomiting, lorazepam 0.5 mg b.i.d. p.r.n. anxiety, Stewart 5/325 one tab q.4 hours p.r.n., Colace 100 mg b.i.d. and calcium chewable 1000 mg at bedtime. HABITS: No current alcohol or tobacco use. FAMILY HISTORY: Noncontributory. SOCIAL HISTORY: The patient hopes to return back home. He is . He does have family that was quite attentive to his care. HISTORY AND PHYSICAL [id number] SALAS RAMOS REVIEW OF SYSTEMS: GENERAL: He does complain of weakness. HEENT: He denies cold, cough, or congestion. CARDIOVASCULAR: He denied chest pain. PHYSICAL EXAMINATION: VITAL SIGNS: Stable and afebrile. GENERAL: Elderly gentleman in no acute distress, alert upon exam. HEENT: Normocephalic and atraumatic. Mucosa moist. NECK: Supple. No lymphadenopathy. LUNGS: Clear at this time. HEART: Regular rate and rhythm. ABDOMEN: Benign. EXTREMITIES: Consistent with a hip surgery. NEUROLOGIC: Intact. LABORATORY DATA: His white count 5.1, H&H 9.7 and 28.4, and platelet count is 179. Sodium 142, potassium 3.4. BUN and creatinine of 25 and 1.0 and blood sugar sugars noted to be 84. ASSESSMENT: This is an 86-year-old gentleman admitted to the rehab with a working diagnosis of status post right hip fracture with severe malnutrition in need for inpatient rehab. The patient has potential to make improvement. We instituted the following multidisciplinary therapies including to, but not limited to physical, occupational, respiratory, speech, nutritional services, prosthetics and orthotics. Given his complex condition and risk for more complications, rehabilitation services cannot be provided at a low level of care such as a alf facility. PLAN: 1. Admit to [facility] rehab for intensive inpatient therapy to include the following disciplines: A. Physical therapy to improve gait, all transfer skills and bed mobility to a modified independent level. B. Occupational therapy to improve activities of daily living to a modified independent level. C. Case management to assist with discharge planning and placement options. D. Nutrition to assist with nutritional needs. E. Rehabilitation nursing to assist in monitoring the patient's underlying medical conditions and to assist with any type of bowel or bladder management. 2. The patient's current medication and medical care will be continued. 3. The patient will be placed on standard fall precautions. 4. The patient's estimated length of stay is approximately 7-10 days. 5. Discuss this patient during care team staff meeting this week. TRANSINT:[id number] Voice Confirmation ID: [id number] DOCUMENT ID: [id number] HISTORY AND PHYSICAL [id number] SALAS RAMOS SCOTT MD at 0844 CC: [id number] DICTATION DATE: 11/19/16 0847 EXPERIMENTAL BOX TESTER: 11/19/16 1009 ADM IN [facility] [address] [id number]
--- NOTE | 2016-11-25 16:34 | NUR ---
CARE TEAM MEETING: DAUGHTERS ATTENDED MEETING. TENATIVE DISCHARGE DATE IS 12/04/16. PLANS ARE THAT DAUGHTERS ARE WANTING PATIENT TO GO TO SNF FOR MORE REHAB , DUE TO ONE DAUGHTER LIVES OUT OF STATE AND THE OTHER WORKS INSECTICIDE SPRAYER. WILL CONTINUE TO FOLLOW WITH PATIENT UNTIL DISCHARGED. WILL RA AT NEXT MEETING.
--- NOTE | 2016-11-25 18:15 | NUR ---
PT RESTING IN BED WITH EYES OPEN CALL LIGHT IN REACH NO PROBLEMS WILL MONITER
[2016-11-25 19:10] VITALS: BP 110/60
--- NOTE | 2016-11-25 19:47 | NUR ---
PT IN BED AWAKE WITH FAMILY SITTING AT BEDSIDE. NO COMPLAINTS OR CONCERNS NOTED AT THIS TIME. CALL LIGHT IN REACH. WILL CONTINUE TO OBSERVE.
--- NOTE | 2016-11-25 21:28 | NUR ---
PT IN BED WITH EYES CLOSED AND CHEST RISING. RESPIRATIONS EVEN AND UNLABORED. NO SIGN/SYMPTOMS OF DISTRESS NOTED. CALL LIGHT IN REACH. WILL CONTINUE TO OBSERVE.
--- NOTE | 2016-11-25 23:22 | NUR ---
PT IN BED WITH EYES CLOSED AND CHEST RISING. RESPIRATIONS EVEN AND UNLABORED. CALL LIGHT IN REACH. WILL CONTINUE TO OBSERVE.
--- NOTE | 2016-11-26 00:35 | NUR ---
PT IN BED WITH EYES OPEN. ASSISTED WITH URINAL WITH 100ML DARK URINE. REPOSITIONED TO LEFT SIDE. NO NEEDS MADE KNOWN AT THIS TIME. CALL LIGHT IN REACH. WILL CONTINUE TO OBSERVE.
--- NOTE | 2016-11-26 06:28 | NUR ---
PT IN BED WITH EYES CLOSED AND EASILY AROUSED UPON ENTRY. RECEIVED SCHEDULED MEDICATIONS WITHOUT DIFFICULTY. 100 MLS EMPTIED FROM URINAL. FLUIDS ENCOURAGED. CALL LIGHT IN REACH.
--- NOTE | 2016-11-26 07:00 | NUR ---
Pt. was received in bed awake and oriented x 3 at the beginning of this shift. Vital signs: Temp. 97.9, pulse 75, resp. 15, b/p 118/71, 02Sat. 98%. Pt. denied any pain or discomfort at this time. Daughter at bedside assisting him with needs. Will be monitoring him throughout this shift and assisting prn with adl's. No signs of any distress.
[2016-11-26 09:43] VITALS: BP 118/71
--- NOTE | 2016-11-26 16:27 | NUR ---
Pt. went to therapy this afternoon and complained of back pain. He was given a Kanarrav[place] 5mg at 1430 for his discomfort. He has not complained anymore today. He participated well in therapy. He requires maximum assist with adl's.
[2016-11-26 18:45] VITALS: BP 104/54
--- NOTE | 2016-11-26 19:00 | NUR ---
ASSISTED PATIENT UP IN BED AND TURND HIM TO PARTIAL SIDELYING POSITION FOR PRESSURE RELIEF TO COCCYX.
--- NOTE | 2016-11-26 20:15 | NUR ---
ASSESSMENT AND HS MEDS COMPLETE. PATIENT TOOK HS MEDS SINGLY WITH WATER. DENIES NEEDS.
--- NOTE | 2016-11-26 20:15 | NUR ---
ASSESSMENT AND HS MEDS COMPLETE. PATIENT REFUSED SCHEDULED TUMS. REPOSITIONED PATIENT TO PARTIAL LEFT SIDELYING POSITION. HOB UP 10 DEGREES NOW.
--- NOTE | 2016-11-26 21:45 | NUR ---
RESTING QUIETLY IN BED, EYES CLOSED.
--- NOTE | 2016-11-27 00:05 | NUR ---
PATIENT AWAKE. EMPTIED 100ML DARK URINE FROM URINAL. ASSISTED PATIENT WITH DRINKING CUP. PROVIDED AN ADDITIONAL BLANKET PER PATIENT REQUEST. DENIES FURTHER NEEDS.
--- NOTE | 2016-11-27 01:50 | NUR ---
EMPTIED 100ML FROM BEDSIDE URINAL.
--- NOTE | 2016-11-27 03:20 | NUR ---
RESTING QUIETLY. EMPTIED 100ML FROM BEDSIDE URINAL.
--- NOTE | 2016-11-27 04:15 | NUR ---
EMPTIED 100ML DARK URINE FROM BEDSIDE URINAL. PATIENT RESTING QUIETLY
--- NOTE | 2016-11-27 05:40 | NUR ---
EMPTIED 100ML DARK URINE FROM BEDSIDE URINAL. REPOSITIONED PATIENT HIGHER UP IN BED AND GAVE HIM SCHEDULED MEGACE PO WELL NOR[place] 5/325 X1 TAB PO FOR BACK PAIN OF LEVEL 5/10. TURNED HIM TO PARTIAL LEFT SIDELYING POSITION.
[2016-11-27 06:41] LABS: BASOPHILS 0.2 % (0.0-2.0); EOSINOPHILS 1.8 % (0-7); HEMOGLOBIN 10.4 g/dL (13.5-17.5); IMMATURE GRANULOCYTES 0.4 % (0-5); LYMPHOCYTES 9.8 % (15-50); MCH 32.2 pg (26.0-34.0); MCHC 32.5 g/dL (31.0-37.0); MCV 99.1 fL (80.0-100.0); MEAN PLATELET VOLUME 9.3 fL (7.4-10.4); MONOCYTES 6.1 % (2-11); NEUTROPHILS 81.7 % (40-80); PLATELET COUNT 315 10x3/uL (130-400); RBC 3.23 10x6/uL (4.20-6.10); WBC 13.5 10x3/uL (4.8-10.8)
--- NOTE | 2016-11-27 07:00 | NUR ---
Pt. was received in bed at the beginning of the shift. Awake and oriented x 3. Daughter and granddaughter at bedside. Stable condition observed. No voiced complaints of discomfort. Vital signs: Temp. 98.6, pulse 60, resp. 14, b/p 105/58, 02Sat. 97%. Will be monitoring him and assisting prn with adl's.
[2016-11-27 07:02] LABS: ANION GAP 9.5 mmol/L (8-16); CALCIUM 10.3 mg/dL (8.5-10.1); CARBON DIOXIDE 26.9 mmol/L (21.0-32.0); CREATININE - SERUM 1.1 mg/dL (0.6-1.3); POTASSIUM - SERUM 3.4 mmol/L (3.5-5.1)
[2016-11-27 08:32] VITALS: BP 105/58
--- NOTE | 2016-11-27 12:10 | NUR ---
Nutrition Follow Up: Pt reported that he does not have much of an appetite. He said that nothing taste good to him, although he did state that he liked the Magic Cups and had been eating them. He told me that he has had stomach surgery in the past and cannot eat/drink much at one time. Pt also stated that he had been nauseated this am. RD encouraged pt to eat as much as he could to help maintain his strength and prevent wt loss. Pt was encouraged to make staff aware of any food preferences that he has. Pt said that he understood. Pt is eating 36% meal avg on a Regular diet. Pt is receiving Magic Cups TID and per pt eating them. +BM 11/24/16. No new wt to assess. Labs noted. Meds noted including Megace, MV, Zofran. Pt is not meeting est nutritional needs at this time. Rec continue current diet, supplement regimen. Rec continue appetite stimulant. Will continue to provide selective menus and honor food preferences. Please obtain current wt on pt if possible. RD following.
[2016-11-27 18:45] VITALS: BP 109/67
[2016-11-27 19:24] VITALS: BP 102/68
--- NOTE | 2016-11-27 19:28 | NUR ---
pt has visitors in room, states they are having a democrat, smiles easily, conversive, denies any needs.
--- NOTE | 2016-11-27 21:10 | NUR ---
pt requested magic cup 'yogurt' to take with meds, crushed medication and put accompanied with 'yogurt' pt states they were easier to swallow. all visitors have left. assisted pt with getting ready for sleep.
--- NOTE | 2016-11-28 04:24 | NUR ---
pt uses urinal, emptied concentrated urine approximately 150 cc. assisted patient with repositioning.
[2016-11-28 08:15] VITALS: BP 110/49
--- NOTE | 2016-11-28 08:30 | NUR ---
PT ASSITED TO TOILET HAD LARGE BM PT PUT BACK TO BED CALL LIGHT IN REACH
--- NOTE | 2016-11-28 10:15 | NUR ---
PT SLIGHTLY INCONTINENT OF BOWEL IN THE FLOOR ON THE WAY TO THE TOILET THEN PT HAD LARGE FROMED BM IN THE TOILET PT CLEANED AND ASSITED BACK TO B3ED CALL LIGHT IN REACH WILL MONITER
--- NOTE | 2016-11-28 19:25 | NUR ---
PT IN BED WITH FAMILY AT BEDSIDE. NO COMPLAINTS OR CONCERNS MADE KNOWN AT THIS TIME. WATER AND CALL LIGHT IN REACH. WILL CONTINUE TO OBSERVE.
[2016-11-28 19:58] VITALS: BP 100/67
--- NOTE | 2016-11-28 21:47 | NUR ---
PT IN BED WITH EYES CLOSED AND EASILY AROUSED UPON ENTRY. MEPILEX TO BUTTOCKS CHANGE DUE TO NONADHERENCE. NO OTHER NEEDS MADE KNOWN. WATER AND CALL LIGHT IN REACH. WILL CONTINUE TO OBSERVE.
--- NOTE | 2016-11-29 00:32 | NUR ---
PT IN BED EYES OPEN DRINKING LEMON-FALSE PASS SODA. NO CONCERNS MADE KNOWN AT THIS TIME. CALL LIGHT IN REACH. WILL CONTINUE TO OBSERVE.
--- NOTE | 2016-11-29 02:48 | NUR ---
PT IN BED WITH EYES CLOSED AND CHEST RISING AROUSED TO ENTRY. URINAL EMPTIED WITH 125MLS DARK URINE. PT PULLED UP IN BED PER REQUEST. NO OTHER NEEDS MADE KNOWN. CALL LIGHT IN REACH. WILL CONTINUE TO OBSERVE.
[2016-11-29 07:00] VITALS: BP 108/74
--- NOTE | 2016-11-29 07:16 | NUR ---
PT DENIES ANY NEEDS.
--- NOTE | 2016-11-29 07:30 | NUR ---
RESTING QUIETLY IN BED. CALL LIGHT IN REACH
--- NOTE | 2016-11-29 08:30 | NUR ---
PATIENTS DAUGHTER IN ROOM. HELPED PATIENT TO EAT BREAKFAST. PATIENT CONTINUES TO HAVE A POOR APPETITE, BUT DID EAT 50% OF BREAKFAST. FLUIDS ENCOURAGED. CALL LIGHT WITHIN REACH. VOICES NO NEEDS
--- NOTE | 2016-11-29 12:12 | NUR ---
PATIENTS DAUGHTER IN ROOM. PATIENT STATES THAT THE MEGACE IS NOT HELPING WITH HIS APPETITE. STATES HE JUST DOES'T FILL LIKE EATTING.
--- NOTE | 2016-11-29 15:00 | NUR ---
PATIENT GIVEN SHOWER BY NURSE ASST.
--- NOTE | 2016-11-29 17:54 | NUR ---
PATIENT HELPED UP TO WHEELCHAIR. MOD ASST ONE ONE. BEARS WEIGHT WELL. IS NOT ABLE TO PIVOT WELL.
[2016-11-29 18:54] VITALS: BP 104/63
--- NOTE | 2016-11-29 19:30 | NUR ---
PATIENT AWKAKE, IN BED TURNED PARTIALLY TO RIGHT SIDE. HOB UP 10 DEGREES. DENIES NEEDS.
--- NOTE | 2016-11-29 21:30 | NUR ---
ASSESSMENT AND HS MEDS COMPLETE. PATIENT C/O BACK PAIN OF LEVEL 5/10. GAVE HIM ULTRAM 50MG PO. REPOSITIONED PATIENT HIGHER UP IN BED AND TURNED HIM TO PARTIAL LEFT SIDELYING POSITION.
--- NOTE | 2016-11-29 22:20 | NUR ---
PATIENT AWAKE. DENIES PAIN. NOW LYING IN PARTIAL RIGHT SIDELYING POSITION.
--- NOTE | 2016-11-30 00:15 | NUR ---
PATIENT RESTING QUIETLY, EYES CLOSED, LYING IN PARTIAL RIGHT SIDE POSITION. EMPTIED 100ML CONCENTRATED URINE FROM HIS BEDSIDE URINAL.
--- NOTE | 2016-11-30 01:55 | NUR ---
RESTING QUIETLY IN BED, EYES CLOSED.
--- NOTE | 2016-11-30 04:40 | NUR ---
GRAEME IN BED, EYES CLOSED. EMPTIED 100ML FROM BEDSIDE URINAL.
--- NOTE | 2016-11-30 05:35 | NUR ---
REMAINS IN BED, WITH LOWER BODY UNCLOTHED TO FACILITATE USE OF URINAL. GAVE PATIENT ULTRAM 50MG PO FOR PAIN LEVEL OF 5/10 IN HIS BACK.
[2016-11-30 05:57] LABS: BASOPHILS 0.5 % (0.0-2.0); EOSINOPHILS 1.4 % (0-7); HEMATOCRIT 34.5 % (42.0-54.0); HEMOGLOBIN 11.2 g/dL (13.5-17.5); IMMATURE GRANULOCYTES 0.3 % (0-5); LYMPHOCYTES 14.9 % (15-50); MCH 32.2 pg (26.0-34.0); MCHC 32.5 g/dL (31.0-37.0); MCV 99.1 fL (80.0-100.0); MEAN PLATELET VOLUME 9.3 fL (7.4-10.4); NEUTROPHILS 76.9 % (40-80); PLATELET COUNT 324 10x3/uL (130-400); RBC 3.48 10x6/uL (4.20-6.10); RDW 14.5 % (11.5-14.5)
[2016-11-30 06:25] LABS: ANION GAP 12.5 mmol/L (8-16); CALCIUM 10.6 mg/dL (8.5-10.1); CARBON DIOXIDE 25.5 mmol/L (21.0-32.0); CREATININE - SERUM 1.1 mg/dL (0.6-1.3)
[2016-11-30 08:00] VITALS: BP 115/76
--- NOTE | 2016-11-30 08:00 | NUR ---
SHIFT ASSMT COMPLETED.DENIES NEEDS.ASSISTED WITH MEAL.CL IN REACH.
--- NOTE | 2016-11-30 12:00 | NUR ---
RETURNED TO ROOM FROM THERAPY;NICOLLE WELL.EATING LUNCH.FRIEND FROM CONFUCIANIST VISITING.CL IN REACH.
--- NOTE | 2016-11-30 16:00 | NUR ---
RESTING QUIETLY.DENIES NEEDS.
[2016-11-30 17:50] VITALS: BP 95/63
--- NOTE | 2016-11-30 19:30 | NUR ---
ASSISTED PATIENT HIGHER UP IN BED. BED ALARM ARMED. SR UP X3. PATIENT DENIES NEEDS.
--- NOTE | 2016-11-30 21:35 | NUR ---
ASSESSMENT AND HS MEDS COMPLETE. APPLIED PATCH BORDERED MEPILEX TO DIME SIZE ABRASION OVER THORACIC SPINAL PROMINENCE. TURNED HIM TO PARTIAL LEFT SIDELYING POSITION AFTER ASSISTING HIM HIGHER UP IN BED. HEELS BRIDGED WITH A PILLOW.
--- NOTE | 2016-11-30 22:00 | NUR ---
RESTING IN BED, IN PARTIAL LEFT SIDELYING POSITION. APPEARS COMFORTABLE. EMPTIED 100ML EVELIA URINE FROM BEDSIDE URINAL.
--- NOTE | 2016-11-30 23:45 | NUR ---
PATIENT AWAKE. READJUSTED HIS POSITION TO PARTIAL LEFT SIDELYING. EMPTIED 50ML EVELIA URINE FROM URINAL. PATIENT DENIES FURTHER NEEDS.
--- NOTE | 2016-12-01 02:00 | NUR ---
RESTING IN BED IN PARTIAL LEFT SIDELYING POSITION, EYES CLOSED. EMPTIED 50ML EVELIA URINE FROM BEDSIDE URINAL.
--- NOTE | 2016-12-01 04:45 | NUR ---
PATIENT AWAKE. TURNED HIM TO PARTIAL RIGHT SIDELYING POSITION AND ASSISTED HIM HIGHER UP IN BED. EMPTIED 125ML EVELIA URINE FROM BEDSIDE URINAL. PATIENT DENIES FURTHER NEEDS.
--- NOTE | 2016-12-01 05:50 | NUR ---
RESTING IN BED, EYES CLOSED. NO APPARENT DISCOMFORT.
[2016-12-01 08:00] VITALS: BP 96/58
--- NOTE | 2016-12-01 08:00 | NUR ---
SHIFT ASSMT COMPLETED.ASSISTED OOB TO BATHRM THEN TO WC TO HAVE BREAKFAST.WEIGHTED SPOON GIVEN WITH MEAL SET-UP PROVIDED.
--- NOTE | 2016-12-01 12:00 | NUR ---
UP IN WC FOR LUNCH.DAUGHTER AT BEDSIDE.
--- NOTE | 2016-12-01 16:00 | NUR ---
RESTING QUIETLY.CL IN REACH.EATING MUCH BETTER TODAY AFTER BEING COACHED AND EDUCATED.
[2016-12-01 20:04] VITALS: BP 95/61
--- NOTE | 2016-12-02 01:20 | NUR ---
PT AWAKE, STATES HE CAN'T GET TO SLEEP, PT STATES HE WOULD LIKE TO SIT UP IN CHAIR TILL BREAKFAST, REORIENTED PT TO TIME OF DAY. PT OPTED TO REMAIN IN BED, ORAL CARE, WASHED HIS FACE AND HE IS TAKING SOME BITES OF THE MAGIC CUP.
--- NOTE | 2016-12-02 04:04 | NUR ---
PT ATE ALL OF MAGIC CUP, TURNED PT ON LEFT SIDE, CALL LIGHT WITHIN REACH
[2016-12-02 06:05] LABS: BASOPHILS 0.2 % (0.0-2.0); EOSINOPHILS 1.1 % (0-7); HEMATOCRIT 33.5 % (42.0-54.0); IMMATURE GRANULOCYTES 0.1 % (0-5); LYMPHOCYTES 11.7 % (15-50); MCH 32.5 pg (26.0-34.0); MCHC 32.8 g/dL (31.0-37.0); MCV 99.1 fL (80.0-100.0); MEAN PLATELET VOLUME 9.9 fL (7.4-10.4); MONOCYTES 6.7 % (2-11); NEUTROPHILS 80.2 % (40-80); PLATELET COUNT 285 10x3/uL (130-400); RBC 3.38 10x6/uL (4.20-6.10); RDW 14.8 % (11.5-14.5); WBC 8.4 10x3/uL (4.8-10.8)
[2016-12-02 06:19] LABS: ANION GAP 11.7 mmol/L (8-16); CALCIUM 10.5 mg/dL (8.5-10.1); CARBON DIOXIDE 25.5 mmol/L (21.0-32.0); CREATININE - SERUM 1.3 mg/dL (0.6-1.3); POTASSIUM - SERUM 4.2 mmol/L (3.5-5.1)
--- NOTE | 2016-12-02 06:39 | NUR ---
PT RESTING QUIETLY, WITH EYES CLOSED. NO S/S OF ACUTE DISTRESS.
[2016-12-02 08:00] VITALS: BP 110/68
--- NOTE | 2016-12-02 08:00 | NUR ---
UP OOB TO WC.BREAKFAST GIVEN.DENIES NEEDS.DAUGHTER AT BEDSIDE.ASSISTS WITH FOOD.
--- NOTE | 2016-12-02 10:04 | NUR ---
Nutrition Follow Up: Chart reviewed. Pt continues with very poor po intake. Pt is eating 21% meal avg on a Regular diet. Pt is receiving Magic Cups with each meal and is eating. +BM 11/28/16 - no BM x 4 days. Labs noted - Na, BUN elevated. Meds noted including Megace, MV, Zofran. Pt continues not meeting est nutritional needs. Will continue to provide selective menus and honor food preferences. Will continue to send Magic Cups with each meal. Please obtain current wt on pt if possible. RD following.
--- NOTE | 2016-12-02 12:00 | NUR ---
UP OOB TO WC FOR LUNCH.CL IN REACH.
--- NOTE | 2016-12-02 15:00 | NUR ---
CARE TEAM MEETING: DAUGHTER ATTENDED MEETING AND WOULD LIKE REFERRAL SENT TO [facility] AND IF THEY DO NOT ACCEPT HE WOULD LIKE TO GO TO [facility]. PCP IS DR. WAKEFIELD, [facility] HE HAS USED IN THE PAST. DME AT HOME IS WALKER, SHOWER CHAIR, O2,AND A NEBULIZER. WILL CONTINUE TO FOLLOW WITH PATIENT , REFERRAL HAS BEEN SENT TO [facility]
--- NOTE | 2016-12-02 16:00 | NUR ---
EATING BETTER.RESTING IN BED.
--- NOTE | 2016-12-02 19:40 | NUR ---
PT. IN BED LYING ON HER RIGHT SIDE WITH HOB UP FOR COMFORT AND ON 3 PILLOWS. PT. IS LEGALLY BLIND. ASSESSMENT COMPLETED. RIGHT HIP STERI STRIPS STILL INTACT AND BRUISING IS FADING. PT. WITH O2 AT 2L/MIN VIA N/C AT H.S. PER DAUGHTER THIS EVENING TO DAY CHARGE NURSE, NEAL LOTT AND MYSELF. SHE STATED SHE HAD PLACED IT ON HIM SHE IS LEAVING FOR THE NIGHT. CALL LIGHT WITHIN REACH.
[2016-12-02 20:00] VITALS: BP 114/73
--- NOTE | 2016-12-02 23:40 | NUR ---
PT. IN BED WITH 3 PILLOWS BEHIND HEAD AND HOB IS ALREADY ELEVATED TO APPROX. 20 DEGREES. EYES ARE CLOSED AND RESP. ARE EVEN. PT. PLACED HIS URINAL ON THE TRAPEZ AFTER USING SO THAT NURSES CAN EMPTY IT NEEDED. CALL LIGHT WITHIN REACH.
--- NOTE | 2016-12-03 03:19 | NUR ---
PT. CALLED FOR ASSISTANCE AND WHEN I CAME INTO ROOM HE WAS WANTING TO WALK AROUND. INFORMED PT. THE TIME OF THE MORNING AND HE SAID HE WOULD GO BACK TO SLEEP AFTER ALL. CALL LIGHT WITHIN REACH.
--- NOTE | 2016-12-03 04:10 | NUR ---
PT. CALLED ME TO ROOM AND NOW WANTS TO GET UP IN HIS W/C. CALLED FOR ASSISTANCE FROM RISSA VAUGHAN AND PT. WAS TRANSFERRED TO W/C. PT. REQUESTED O2 BE REMOVED AND THEN HE REQUESTED A COKE TO DRINK. COKE GIVEN TO PT. AND HE WAS LEFT WITH HIS CALL LIGHT WITHIN REACH.
--- NOTE | 2016-12-03 07:32 | NUR ---
RESTING QUIETLY IN BED. CALL LIGHT IN REACH
[2016-12-03 07:59] VITALS: BP 103/70
--- NOTE | 2016-12-03 08:00 | NUR ---
DAUGHTER IN ROOM WITH PATIENT. PATIENT AWAKE, ALERT/ORIENT. CALL LIGHT WITHIN REACH. BED ALARM ON. VOICES NO NEEDS AT THIS TIME
[2016-12-03] MEDS ORDERED: MEGACE400 MG/10 PO (08:46)
--- NOTE | 2016-12-03 10:00 | NUR ---
PATIENT IN REHAB ROOM. WORKING WITH PHYSICAL THERAPIST. DENIES ANY PAIN/DISC AT THIS TIME
--- NOTE | 2016-12-03 12:00 | NUR ---
PATIENTS DAUGHTER INTO VISIT. HELPING PATIENT WITH LUNCH. SITTING UP IN BED.
--- NOTE | 2016-12-03 13:30 | NUR ---
PATIENT VERY THIN, MIDDLE OF BACK IS RED, EXORIATED, MEPILEX DRESSING APPLIED. COCCYX RED, MEPILEX DRESSING APPLIED AFTER SHOWER.
--- NOTE | 2016-12-03 15:15 | NUR ---
PATIENT IN REHAB ROOM. WORKING WITH OCCUPATIONAL THERAPIST. STATED THAT HE IS HAVING BACK PAIN AND THAT HE IS FEELING NAUSEATED. PRN ZOFRAN AND PRN ULTRUM GIVEN.
--- NOTE | 2016-12-03 15:20 | NUR ---
PATIENT HAS BEEN ACCEPTED TO [facility] AND WILL DISCHARGE THERE ON 12/04/16 VIA FACILITY VAN. APPOINTMENTS: DR. BONE 12/07/16 @ 11:40, AN APPOINTMENT WITH DR. WAKEFIELD WILL BE MADE AT TIME OF DISCHARGE FROM FACILITY. NO DME OR HOME HEALTH NEEDED AT THIS TIME.PATIENT CHOICE FORM FOR SNF AND [facility] FORM SIGNED AND FILED IN CHART. WILL CONTINUE TO FOLLOW WITH PATIENT UNTIL DISCHARGED
--- NOTE | 2016-12-03 19:47 | NUR ---
PT. IN BED WITH HOB UP FOR COMFORT AND CONTINED TO WEAR HIS SOFT CERVICAL COLLAR ALL THE TIME. PT. IS LEGALLY BLIND SO I INTRODUCED MYSELF AND HE REMEMBERS ME FROM LAST NIGHT. ASSESSMENT COMPLETED. PT. HAS NO VOICED NEEDS AT THIS TIME AND HAS HIS CALL LIGHT WITHIN REACH.
[2016-12-03 22:00] VITALS: BP 102/63
--- NOTE | 2016-12-03 23:40 | NUR ---
PT. IN BED LYING ON HIS RIGHT SIDE WITH EYES CLOSED AND RESP. EVEN. CALL LIGHT WITHIN REACH.
--- NOTE | 2016-12-04 02:25 | NUR ---
PT. IN BED WITH HOB UP FOR COMFORT WITH SOFT CERVICAL COLLAR ON. EYES ARE CLOSED AND RESP. ARE EVEN. CALL LIGHT WITHIN REACH.
--- NOTE | 2016-12-04 05:24 | NUR ---
PT. IN BED WITH HOB UP FOR COMFORT AND WEARING HIS SOFT CERVICAL COLLAR AT ALL TIMES. EYES CLOSED AND RESP. EVEN. CALL LIGHT WITHIN REACH.
[2016-12-04 06:43] LABS: BASOPHILS 0.6 % (0.0-2.0); EOSINOPHILS 3.5 % (0-7); HEMATOCRIT 34.1 % (42.0-54.0); IMMATURE GRANULOCYTES 0.3 % (0-5); LYMPHOCYTES 22.6 % (15-50); MCH 32.4 pg (26.0-34.0); MCHC 32.3 g/dL (31.0-37.0); MCV 100.6 fL (80.0-100.0); MEAN PLATELET VOLUME 9.9 fL (7.4-10.4); MONOCYTES 9.7 % (2-11); NEUTROPHILS 63.3 % (40-80); PLATELET COUNT 271 10x3/uL (130-400); RBC 3.39 10x6/uL (4.20-6.10); RDW 14.8 % (11.5-14.5); WBC 6.6 10x3/uL (4.8-10.8)
[2016-12-04 06:47] LABS: ANION GAP 14.6 mmol/L (8-16); CALCIUM 10.7 mg/dL (8.5-10.1); CARBON DIOXIDE 19.7 mmol/L (21.0-32.0); CREATININE - SERUM 1.1 mg/dL (0.6-1.3); POTASSIUM - SERUM 4.3 mmol/L (3.5-5.1)
--- NOTE | 2016-12-04 08:15 | NUR ---
PT RESTING IN BED WITH EYES OPEN CALL LIGHT IN REACH NO PROBLEMS WILL MONITER
--- NOTE | 2016-12-04 12:45 | NUR ---
PT DISCHARGED TO [facility] WITH DAUGHTER AND STAFF VIA WHEELCHAIR DISCHARGE PACK SENT WITH PT TOLERATED WELL REPORT CALLED TO [place] AT [facility]
== END 2016-12-04 14:41 | DRG 559 ==
LOC: D.REHAB 14:42
PROVIDERS: ADMIT Emergency Medicine
DX: S72.141D Displaced intertrochanteric fracture of right femur, subsequent encounter for closed fracture with routine healing (principal); E43 Unspecified severe protein-calorie malnutrition; A15.9 Respiratory tuberculosis unspecified; J43.9 Emphysema, unspecified; R31.9 Hematuria, unspecified; R13.10 Dysphagia, unspecified; Z99.81 Dependence on supplemental oxygen; I25.10 Atherosclerotic heart disease of native coronary artery without angina pectoris; I10 Essential (primary) hypertension; E78.5 Hyperlipidemia, unspecified; H35.30 Unspecified macular degeneration; Z91.81 History of falling; C44.91 Basal cell carcinoma of skin, unspecified

== ENCOUNTER 2016-12-13 09:33 | Inpatient (IN) | payer MEDICARE, BC ==
[~2016-12-13] VITALS: Ht 185.4 cm; Wt 40.8 kg
[~2016-12-13 09:33] MED LIST changes: +MEGACE400 MG/10 PO
[2016-12-13 10:05] LABS: BASOPHILS 0.2 % (0.0-2.0); EOSINOPHILS 0 % (0-7); HEMATOCRIT 42.1 % (42.0-54.0); HEMOGLOBIN 13.9 g/dL (13.5-17.5); IMMATURE GRANULOCYTES 0.2 % (0-5); LYMPHOCYTES 7.5 % (15-50); MEAN PLATELET VOLUME 9.7 fL (7.4-10.4); MONOCYTES 5.6 % (2-11); NEUTROPHILS 86.5 % (40-80); RBC 4.21 10x6/uL (4.20-6.10); RDW 14.8 % (11.5-14.5)
[2016-12-13 10:06] LABS: PLATELET COUNT 171 10x3/uL (130-400)
[2016-12-13 10:26] LABS: APPEARANCE CLOUDY (CLEAR); COLOR DK YELLOW (YELLOW); LEUKOCYTE ESTERASE TRACE (NEGATIVE)
[2016-12-13 10:27] LABS: BILIRUBIN NEGATIVE (NEGATIVE); GLUCOSE NEGATIVE (NEGATIVE); KETONE NEGATIVE (NEGATIVE); NITRITE NEGATIVE (NEGATIVE); PROTEIN 1+ mg/dL (NEGATIVE)
[2016-12-13 10:29] LABS: BACTERIA FEW /hpf (NONE SEEN); EPITHELIAL CELLS 0-5 /hpf (0-5); WHITE CELLS - URINE 0-5 /hpf (0-5)
[2016-12-13 10:34] LABS: ALBUMIN 2.9 g/dL (3.4-5.0); ANION GAP 17.9 mmol/L (8-16); BILIRUBIN - TOTAL 1.41 mg/dL (0.2-1.3); CALCIUM 11.2 mg/dL (8.5-10.1); CARBON DIOXIDE 21.6 mmol/L (21.0-32.0); CREATININE - SERUM 1.3 mg/dL (0.6-1.3); POTASSIUM - SERUM 4.5 mmol/L (3.5-5.1); PROTEIN - SERUM 5.8 g/dL (6.4-8.2); THYROID STIMULATING HORMONE 3.42 uIU/mL (0.36-3.74)
--- NOTE | 2016-12-13 13:00 | NUR ---
REPORT REC'D FROM KAYLIE MCKEON, IN ER. ROOM READY AND AWAITING PT ARRIVAL.
--- NOTE | 2016-12-13 13:45 | NUR ---
PT REC'D TO ROOM. AAOX4. LEGALLY BLIND IN BOTH EYES. VERY SOFT SPOKEN. O2 ON AT 2L. CURRENT SAT 96%. REGULAR HEART RATE AND RHYTHM. LUNG SOUNDS CLEAR TO UPPER LOBES. BILAT CRACKLES TO LOWER LOBES. PT HAS ON SOFT C-COLLAR. PT STATES HE BROKE A VERTABREA IN HIS BACK IN JULY AND HAS TO WEAR A COLLAR UNTIL DECEMBER. PT IS EXTREMELY THIN. BOWEL SOUNDS HYPOACTIVE X4 QUADRANTS. REDDENED AREAS TO COCCYX, R HIP, AND MIDDLE OF BACK. MEPILEX APPLIED TO COCCYX, AND PT TURNED TO L SIDE. DAUGHTER IN ROOM. PROVIDED PT WITH ICE WATER. BED LOW, CALL LIGHT IN REACH, DENIES NEEDS, CPOC.
--- NOTE | 2016-12-13 13:51 | NUR ---
Patient Name: SALAS RAMOS Admission Status: ER Accout number: [id number] Admission Date: 12-13-2016 : 1928 Admission Diagnosis: Multi lobe Pneumonia Attending: EAN Current LOS: 3 Anticipated DC Date: 12/16/16 Planned Disposition: Return to [facility] Primary Insurance: MEDICARE A & B Discharge Planning Comments: Cm met with patient and his daughter, Sheri Blue, to complete initial discharge assessment. Patient's daughter answered assessment questions. Prior to admission [facility]. Daughter reports prior to his hip fracture he lived home alone and was independent in his care at home. He had [facility] at home prior to his hip fracture as well related to a fall. Since his hip fracture he requires assistance with ambulation, meals, all Adl's, and medication management. Daughter reports he will be returning to [facility] to complete therapy. Cm will continue to follow and assist with dc plans/needs. Digital Production Manager: Shama Price RN, CCM Is the patient Alert and Oriented? Yes * How many steps to enter\exit or inside your home? 0 * PCP Dr. Desai * Pharmacy [facility] * Preadmission Environment [facility] * Facility Name [facility] * ADLs Partial Dependent * Partial ADLs (Assistance needed) Ambulation Bathing Dressing Eating Medication Management Toileting * Equipment Oxygen Walker * List name and contact numbers for known caregivers / representatives who currently or will assist patient after discharge: Sheri Blue - daughter - [phone] * Additional services required to return to the preadmission environment? No * Can the patient safely return to the preadmission environment? Yes * Has this patient been hospitalized within the prior 30 days at any hospital? Yes
--- NOTE | 2016-12-13 14:30 | NUR ---
ASSESSMENT PER ADMIT PACK.PT WITHOUT DISTRESS.AT PRESENT.FAMILY AT BEDSIDE.INSTRUCTED CALL LIGHT USE FOR NEEDS.
--- NOTE | 2016-12-13 14:40 | NUR ---
PT RESTING IN BED, DAUGHTER BY BEDSIDE, BED LOWEST POSITION, BED ALARM ON, IV LEFT FOREARM PATENT, IV FLUIDS BOLUS COMPLETE, SALINE LOCKED, CALL LIGHT IN REACH, NO COMPLAINTS AT THIS TIME, WILL CONTINUE PLAN OF CARE
[2016-12-13 15:35] VITALS: BP 101/49; BMI 11.9
--- NOTE | 2016-12-13 16:00 | NUR ---
PT EATING ICE CREAM SITTING IN BED, NO COMPLAINTS AT THIS TIME. BED LOWEST POSITION, CALL LIGHT IN REACH, BED ALARM ON, WILL CONTINUE TO MONITOR
[2016-12-13 16:07] VITALS: BP 101/49
--- NOTE | 2016-12-13 19:07 | NUR ---
Patient requested to speak w/ immigration case manager. She would like to be evaluated for acute rehab at [facility]. She has had home health services in the past w/ [facility]. She "fired" [facility] this past Wednesday. She states the best of the 3 providrs for her was [facility]. She lives in a private home w/ her daughter, Triny, and the dtr's 13 year old and 2 year old. The daughter also works. She states there are 2 steps into the house , a landing then one step up. Patient had lived at [facility] 04/13/16- 10/10/16. She was not pleased w/ this assisted living facility. CM advised she may want to think about a skilled facility in case she is not accepted to acute rehab. CM to follow to assist w/ discharge planning.
--- NOTE | 2016-12-13 20:00 | NUR ---
ASSESSMENT PER FLOWSHEET. O2 ON 2L/M PER NC. BREATH SOUNDS DIMINISHED BILATERALLY. PT LEGALLY BLIND. IV PATENT LEFT FOREARM SALINE LOCKED. TELNM. SHOWS ST WITH PAC'S AND HR OF 101.SR UP X2 CALL LIGHT WITHIN REACH.
--- NOTE | 2016-12-13 20:30 | NUR ---
PT'S RELATIVE AT BEDSIDE. PT VOIDED IN URINAL.
--- NOTE | 2016-12-13 21:30 | NUR ---
MEDS GIVEN PER MAR.
[2016-12-13 21:43] VITALS: BP 94/63
--- NOTE | 2016-12-13 23:44 | NUR ---
C/O PAIN GENERALIZED DISCOMFORT. ULTRAM 50MG PO GIVEN FOR PAIN CONTROL.
--- NOTE | 2016-12-14 00:34 | NUR ---
RESTING QUIETLY DENIES NEEDS.
[2016-12-14 05:00] VITALS: BP 100/66
[2016-12-14 05:36] LABS: BASOPHILS 0.1 % (0.0-2.0); EOSINOPHILS 0.3 % (0-7); HEMATOCRIT 36.9 % (42.0-54.0); IMMATURE GRANULOCYTES 0.3 % (0-5); LYMPHOCYTES 10.1 % (15-50); MCH 32.3 pg (26.0-34.0); MCHC 32.5 g/dL (31.0-37.0); MCV 99.5 fL (80.0-100.0); MEAN PLATELET VOLUME 10.4 fL (7.4-10.4); MONOCYTES 5.7 % (2-11); NEUTROPHILS 83.5 % (40-80); PLATELET COUNT 159 10x3/uL (130-400); RBC 3.71 10x6/uL (4.20-6.10); RDW 14.8 % (11.5-14.5); WBC 7.5 10x3/uL (4.8-10.8)
[2016-12-14 05:54] LABS: ANION GAP 15.2 mmol/L (8-16); CALCIUM 10.7 mg/dL (8.5-10.1); CARBON DIOXIDE 22.9 mmol/L (21.0-32.0); CREATININE - SERUM 1.3 mg/dL (0.6-1.3); POTASSIUM - SERUM 4.1 mmol/L (3.5-5.1)
[2016-12-14 08:34] VITALS: BP 124/77
[2016-12-14 11:23] VITALS: BP 103/65
[2016-12-14 13:52] VITALS: Ht 185.4 cm; Wt 40.8 kg
[2016-12-14 15:18] VITALS: BP 106/67
[2016-12-14 19:00] VITALS: BP 109/63
--- NOTE | 2016-12-14 19:15 | NUR ---
RECIEVED SHIFT REPORT. PT IS LYING IN BED. ALERT AND ORIENTED AND ABLE TO VERBALIZE NEEDS. IV IS PATENT AND SALINE LOC AT THIS TIME. O2 @ 2 PER NASAL CANNULA. PT REQUIRES ASSISTANCE TURNING IN BED FOR COMFORT AND SKIN CARE. PT DENIES ANY PAIN AT THIS TIME. NO NEEDS ARE VERBALIZED AT THIS TIME. WILL CONTINUE TO MONITOR. SIDE RAILS ARE UP X 2. BED IS IN LOWEST POSITION. BED ALARM IS ON FOR SAFETY. CALL LIGHT IS WITHIN REACH.
--- NOTE | 2016-12-14 21:00 | NUR ---
SHIFT ASSESSMENT COMPLETED. PT POSITIONED FOR COMFORT. NO NEEDS ARE VOICED. WILL MONITOR. SIDE RAILS X 2. BED LOW. BED ALARM ON. CALL LIGHT IN REACH.
[2016-12-15 04:00] VITALS: BP 107/62
[2016-12-15 07:53] VITALS: BP 109/65
[2016-12-15 12:04] VITALS: BP 106/64
[2016-12-15 15:32] VITALS: BP 90/51
[2016-12-15 15:46] VITALS: BP 169/90
[2016-12-15 15:48] VITALS: BP 194/96
--- NOTE | 2016-12-15 20:10 | NUR ---
SHIFT ASSESSMENT COMPLETED. PT POSITIONED FOR COMFORT. DRINKS OFFERED AND ACCEPTED. NO FURTHER NEEDS AT THIS TIME. WILL MONITOR. SIDE RAILS X 2. BED LOW. BED ALARM ON. CALL LIGHT IN REACH.
--- NOTE | 2016-12-15 20:25 | NUR ---
PT ASSISTED TO PHONE HIS DAUGHTER AT THIS TIME.
--- NOTE | 2016-12-15 22:20 | NUR ---
BED BATH AND LINEN CHANGE PROVIDED AT THIS TIME DUE TO MISSING OF THE URINAL. WARM BLANKET PROVIDED. NO FURTHER NEEDS AT THIS TIME. SIDE RAILS X 2. BED LOW. BED ALARM ON. CALL LIGHT IN REACH.
--- NOTE | 2016-12-16 02:38 | NUR ---
PT STATES HE IS NOT FELING RIGHT AND FEEL LIKE HE CANT BREATHE. O2 PATENT PER NASAL CANNULA. PULSE OX 98%. HR=79. ASKED PT IF HE WAS FEELING ANXIOUS FOR ANYTHING AND SAID, "I MIGHT BE." OFFERED PT PRN ATIVAN AND STATED "ILL TRY IT." ADMINISTERED PER ORDER. WILL MONITOR. SIDE RAILS X 2. BED LOW. BED ALARM ON. CALL LIGHT IN REACH.
[2016-12-16 04:00] VITALS: BP 112/68
[2016-12-16 08:15] VITALS: BP 100/64
--- NOTE | 2016-12-16 10:18 | NUR ---
NUTRITION MONITORING & EVAL CHART REVIEWED, PT VISIT. DTR CONCERNED ~ POOR PO INTAKE, WT LOSS. PROVIDED ENSURE CLEAR FOR PT TO TRY (DOES NOT LIKE REG ENSURE OR BOOST). DTR WITH QUESTIONS ~ HOW TO PROVIDE INCREASED NUTRITION. DISCUSSED TUBE FEEDING OPTIONS, ADVANTAGES AND DISADVANTAGES. RD FOLLOWING
[2016-12-16 15:40] VITALS: BP 96/60
[2016-12-16 19:00] VITALS: BP 90/53
--- NOTE | 2016-12-16 19:15 | NUR ---
RECIEVED SHIFT REPORT. PT IS LYING IN BED. ALERT AND ORIENTED AND ABLE TO VERBALIZE NEEDS. IV IS PATENT AND FLUIDS ARE RUNNING PER ORDER. O2 @ 2 PER NASAL CANNULA. PT DENIES ANY PAIN AT THIS TIME. PT REQUIRES MINIMAL ASSISTANCE TURNING IN BED FOR COMFORT AND SKIN CARE. 1ST STEP OVERLAY IN PLACE FOR COMFORT. NO NEEDS ARE VERBALIZED AT THIS TIME. WILL CONTINUE TO MONITOR. SIDE RAILS ARE UP X 2. BED IS IN LOWEST POSITION. BED ALARM IS ON FOR SAFETY. CALL LIGHT IS WITHIN REACH.
--- NOTE | 2016-12-16 21:18 | NUR ---
SHIFT ASSESSMENT COMPLETED. NIGHT MEDS GIVEN WITH NO PROBLEMS. NO NEEDS ARE VOICED. WILL MONITOR. SIDE RAILS X 2. BED LOW. BED ALARM ON. CALL LIGHT IN REACH.
[2016-12-17] VITALS: BP 99/58
[2016-12-17 04:00] VITALS: BP 108/63
--- NOTE | 2016-12-17 06:39 | NUR ---
PT C/O PAIN 5/10 AND ANXIETY. ADMINISTERED PRESCRIBED PRN NORCO AND ATIVAN PER ORDER. DENIES FURTHER NEEDS. POSITIONED FOR COMFORT. WILL MONITOR. SIDE RAILS X 2. BED LOW. BED ALARM ON. CALL LIGHT IN REACH.
--- NOTE | 2016-12-17 07:29 | NUR ---
ORDER FOR NS AT 50ML/HR WAS PUT IN BY EMERGENCY ROOM DOCTOR 12/13/16 AT 1045. AN ORDER TO SALINE LOCK IV WAS PUT IN 12/13/16 AT 1400. D/C THE ORDER FOR THE NS SINCE THE SALINE LOCK ORDER IS THE NEWEST ORDER. WILL SALINE LOCK IV.
[2016-12-17 08:02] VITALS: BP 123/70
--- NOTE | 2016-12-17 09:40 | CN ---
PATIENT NAME:SALAS TORO MEDICAL RECORD: [id number] : [birth year] LOCATION:[facility] [id number] ADMIT DATE: 12/13/16 ACCOUNT: [id number] CONSULTING PHYSICIAN: BRIA ALANIS MD REFERRING PHYSICIAN: KUN WAKEFIELD MD DATE OF CONSULTATION: 12/16/2016 CONSULT REQUESTING PHYSICIAN: Dr. Kun Wakefield. REASON FOR CONSULTATION: Pulmonary embolism, pneumonia, COPD. HISTORY OF PRESENT ILLNESS: Mr. Toro is an 86-year-old gentleman who is a very poor historian. The patient was recently hospitalized for the hip fracture. He was rehabilitated and discharged. The patient was admitted with cough, sputum production and shortness of breath. Chest radiograph, he had pneumonia, right upper lobe. CTA of the chest was done which showed that he has a pulmonary embolism as well as pneumonia emphysematous changes. History was taken mainly by the help of his daughter. PAST MEDICAL HISTORY: 1. History of fall and cervical spine fracture. 2. 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 3. History of coronary artery disease and myocardial infarction. 4. History of chronic obstructive pulmonary disease. 5. History of tuberculosis. 6. History of skin cancer. PAST SURGICAL HISTORY: He had a hip surgery; ____ stomach, gastric ulcer, bleeding ulcer surgery in 1967. ALLERGIES: There are no known drug allergies. PRESENT MEDICATIONS: He is on Zithromax IV and Teflaro. His other medication is reviewed. PERSONAL AND SOCIAL HISTORY: The patient is now a jail resident. He was active smoker. He did not smoking since October since his fall and fracture of his hip. FAMILY HISTORY: Noncontributory. PHYSICAL EXAMINATION: GENERAL: Now, the patient is lying comfortably in bed. He is very frail. VITAL SIGNS: The blood pressure is 100/64, pulse is 81, respirations 20, temperature 98.2, SPO2 is 99% on 2 liters nasal cannula. HEENT: Conjunctivae pink, sclerae nonicteric. NECK: Supple. No JVD. CHEST: Excursion is minimal on both sides. There are crackles at the right apex, wheeze on forceful expiration. HEART: Rhythm regular, normal sound, no murmur. ABDOMEN: Soft. Bowel sounds present. No hepatosplenomegaly. RECTAL: Deferred. EXTREMITIES: No cyanosis, no clubbing, no pedal edema. SKIN: Warm. Normal turgor. CENTRAL NERVOUS SYSTEM: The patient is blind in the right eye. He has 30% CONSULT REPORT [id number] CHILCOAT,SALAS ROSIBEL vision in the left. The patient is very emaciated. IMAGING: CTA of the chest: There is embolism and severe emphysematous changes in the right upper lobe infiltrate. OTHER LABORATORY DATA: CBC: WBC 7.5, hemoglobin 12, hematocrit 36.9 and the platelet count is 159. IMPRESSION: 1. Pneumonia, right upper lobe, most likely hospital-acquired with the patient's recent hospitalization. 2. Pulmonary embolism in the left lower lobe by the CTA. 3. Chronic obstructive pulmonary disease with acute exacerbation. 4. Chronic hypoxic respiratory failure. 5. Tobacco dependence syndrome. 6. Generalized debility. 7. Dysphagia. RECOMMENDATION: 1. I will discontinue Zithromax, start him on Levaquin and cefepime for Gram-negative [place] and hospital-acquired pneumonia. Continue the Teflaro. 2. I will discontinue Lovenox, start him on Xarelto. 3. Albuterol ipratropium nebulizer. 4. Continue pureed, thick diet and speech therapy recommendation. 5. Advair 250/50 one puff b.i.d. 6. Start him on small dose of methylprednisolone. Dr. Wakefield, once again thank you for involving me in the care of Mr. Toro. TRANSINT:[id number] Voice Confirmation ID: [id number] DOCUMENT ID: [id number] BRIA ALANIS MD at 0940 CC: KUN WAKEFIELD MD [id number] DICTATION DATE: 12/16/16 1247 FLOAT BUILDER: 12/16/16 1441 ADM IN [facility] [address] [place] [address]
[2016-12-17 12:22] VITALS: BP 104/64
[2016-12-17 16:04] VITALS: BP 90/55
[2016-12-17 20:00] VITALS: BP 92/49
--- NOTE | 2016-12-17 20:00 | NUR ---
PATIENT SLEEPING ON RIGHT SIDE. HOB 30 DEGREES. AROUSES TO VOICE. RR EVEN AND UNLABORED. O2 @ 2L VIA NC. IV TO LEFT FA SL WITH NO REDNESS OR SWELLING. TELEMETRY ON. B/A ON. SRX2. BED LOW. CALL LIGHT WITHIN REACH.
--- NOTE | 2016-12-18 01:10 | NUR ---
PATIENT ANXIOUS AND STATES HE FEELS LIKE HE "CANNOT BREATHE." O2 SAT 98%. ATIVAN GIVEN PER ORDER.
[2016-12-18 03:00] VITALS: BP 117/74
--- NOTE | 2016-12-18 05:58 | NUR ---
PATIENT ONLY VOIDED 150ML THROUGHOUT THE NIGHT. BLADDER SCAN SHOWED 408ML. PATIENT ATTEMPTED TO VOID IN URINAL AGAIN AND WAS ABLE TO VOID 150ML MORE. MENTIONED IN AND OUT CATH TO PATIENT BUT HE STATED "GIVE ME A LITTLE LONGER AND LET ME SIT UP AND I WILL BE ABLE TO GO MORE." WILL PASS ON IN REPORT TO MONITOR.
--- NOTE | 2016-12-18 07:30 | NUR ---
REPORT RECEIVED FROM VENEER DRIER FEEDER NURSE. CALL LIGHT IN REACH.
[2016-12-18 07:51] VITALS: BP 111/64
--- NOTE | 2016-12-18 09:17 | NUR ---
ASSESSMENT COMPLETED. AM MEDS ADMINISTERED WITH NORCO PO. REFUSES SCDs. DAUGHTER AT BEDSIDE. CALL LIGHT IN REACH. WILL CONTINUE WITH PLAN OF CARE.
--- NOTE | 2016-12-18 11:52 | NUR ---
KRISTIE PO. DAUGHTER AT BEDSIDE. CALL LIGHT IN REACH.
--- NOTE | 2016-12-18 11:54 | NUR ---
PASSWORD AND EMERGENCY CONTACT INFORMATION OBTAINED FROM DAUGHTER.
--- NOTE | 2016-12-18 11:57 | NUR ---
PATIENT IN RIGHT LATERAL POSITION RESTING QUIETLY. FAMILY PRESENT. RESPIRATIONS EVEN AND UNLABORED. SIDE RAILS UP X2. BED IN LOW POSITION. CALL LIGHT IN REACH. RISSA KNUTSON AT BEDSIDE.
[2016-12-18 12:26] VITALS: BP 90/58
--- NOTE | 2016-12-18 13:52 | NUR ---
Nutrition Follow Up: Pt was asleep and no family present at the time of RD visit. Chart reviewed. Pt is eating ~7% meal avg on a Regular diet. Labs noted - Na elevated. Meds noted including Marinol. No new wt to assess. Pt continues with extremely poor po intake - not meeting est nutritional needs. Rec continue Marinol, current diet. Will continue to provide selective menus and honor food preferences. RD following.
--- NOTE | 2016-12-18 13:59 | NUR ---
IV SITE WAS BLEEDING. TOOK DRSG OFF AND IV WAS STILL GOOD SO SITE CLEANSED AND NEW DRSG APPLIED. MAXIPIME IVPB. ALL IV TUBING CHANGED PER HOSPITAL PROTOCOL.
--- NOTE | 2016-12-18 14:52 | NUR ---
LEVAUQIN 500 MG IVPB. DENIES PAIN OR NEEDS. CALL LIGHT IN REACH.
[2016-12-18 16:09] VITALS: BP 88/56
--- NOTE | 2016-12-18 16:15 | NUR ---
RESTING WITH EYES CLOSED. RESP EVEN AND UNLABORED. DAUGHTER AT BEDSIDE. CALL LIGHT IN REACH. STILL REFUSING SCDs.
--- NOTE | 2016-12-18 17:14 | NUR ---
DOREEN AND STEFANIE PO. DAUGHTER IN ROOM. CALL LIGHT IN REACH.
--- NOTE | 2016-12-18 18:25 | NUR ---
SOLUMEDROL IVP PER ORDER. NO CHANGES IN INITIAL ASSESSMENT. CALL LIGHT IN REACH. WILL CONTINUE WITH PLAN OF CARE. STILL REFUSES SCDs.
[2016-12-18 19:00] VITALS: BP 118/61
--- NOTE | 2016-12-19 01:01 | NUR ---
ASSESSED AT THE BEGINNING OF THE SHIFT. PT IS ALERT AND ORIENTED, ABLE TO VERBALIZE NEEDS AND BECAUSE OF VERY POOR VISION HAS A SPECIAL SET UP OVER HIS CALL BUTTON TO LET HIM KNOW IT IS THERE. HIS DAUGHTER WAS AT THE BEDSIDE UNTIL ABOUT 2100 AND BEFORE SHE LEFT SHE FIRST WANTED A PAIN PILL BUT THEN CHANGED IT TO ATIVAN. AFTER SHE LEFT HE PULLED HIS IV OUT AND IT WAS RESTARTED IN THE LEFT UPPER ARM WITH A 22 AND A COMPLETE BEDCHANGE WAS DONE DUE TO INCONT. EPISODE. AT THIS TIME HE IS RESTING QUIET WITH NO DISTRESS NOTED. WE ARE TURNING AND REPOSITIONING HIM PER PROTOCOL AND KEEPING HIM DRY.
[2016-12-19 03:45] VITALS: BP 129/84
[2016-12-19 04:00] VITALS: BP 129/84
[2016-12-19 08:12] VITALS: BP 97/63
--- NOTE | 2016-12-19 11:15 | NUR ---
PT IN ROOM LAYING ON RIGHT SIDE. PYSICAL THERAPY JUST FINISHED WALKING HIM AND LAID HIM BACK DOWN TO TO BED. IS RESTING COMFORTABLY. DAUGHTER IS GOING DOWN TO HAVE LUNCH AND WILL BE BACK. INSTUCTED PATIENT TO CALL IF NEEDED ANYTHING. VERBALIZED UNDERSTANDING. BED LOW, LOCKED, CALL LIGHT IN REACH.
[2016-12-19 11:37] VITALS: BP 96/57
--- NOTE | 2016-12-19 11:54 | NUR ---
CHECKED ON PT, IS RESTING IN BED ON RIGHT SIDE STILL. DENIED NEEDING ANYTHING @ THIS TIME. INSTUCTED TO CALL IF NEEDED ANYTHING. VERBALIZED UNDERSTANDING. BED LOW, CALL LIGHT IN REACH, BED LOCKED.
[2016-12-19 15:07] VITALS: BP 107/76
--- NOTE | 2016-12-19 17:30 | NUR ---
SLEEPING QUIETLY AT PRESENT RESP EVEN AND UNLABORTED DENIES ANY NEEDS AT THIS TIME.
--- NOTE | 2016-12-19 18:34 | NUR ---
PRN ATIVAN ADMINISTERED PER PT REQUEST DUE TO AXNIOUSNESS. WILL REASSESS.
--- NOTE | 2016-12-19 19:00 | NUR ---
PATIENT SLEEPING ON RIGHT SIDE WITH NO DISTRESS NOTED. HOB 30 DEGREES. RR EVEN AND UNLABORED. IV TO LEFT FA PATENT WITH NO REDNESS OR SWELLING. TELEMETRY ON. B/A ON. SRX2. BED LOW. CALL LIGHT WITHIN REACH.
[2016-12-19 19:23] VITALS: BP 84/51
--- NOTE | 2016-12-19 22:30 | NUR ---
PATIENT STATES THAT HE "CAN'T CATCH HIS BREATH." PUT O2 BACK ON PATIENT AND SAT HIM UP IN THE BED. NIGHTTIME MEDS GIVEN. NORCO GIVEN FOR PAIN. WILL REASSESS.
[2016-12-20 04:00] VITALS: BP 139/72
--- NOTE | 2016-12-20 08:00 | NUR ---
REC'D PATIENT LYING SEMI FOWLERS IN BED. DAUGHTER IS IN ROOM. PATIENT IS SLEEPING. ADMINSTERED MEDS PRESCRIBED. ALERT AND ORIENTED X4. SPEECH CLEAR. DAUGHTER WANTED TO KNOW IF HE HAD ANY PAIN MEDICATION LAST NIGHT AND I TOLD HER NO. BED LOW, LOCKED, CALL LIGHT IN REACH. INSTUCTED PATIENT TO CALL IF NEEDED ANYTHING. PATIENT AND DAUGHTER VERBALIZED UNDERSTANDING.
[2016-12-20 08:37] VITALS: BP 110/81
--- NOTE | 2016-12-20 09:30 | NUR ---
PATIENT IS LYING ON HIS LEFT SIDE FROM THE RIGHT. DAUGHTER STATED THAT PATIENT SAID HE WAS IN PAIN BUT THAT SHE TALKED HIM OUT OF THE PAIN PILL. PATIENT WAS ASLEEP @ THIS TIME. INSTUCTED DAUGHTER TO LET ME KNOW IF HE WAS IN ANY PAIN AND THAT I WOULD TAKE CARE OF IT. BED LOW, LOCKED, CALL LIGHT IN REACH. INTRUCTED TO CALL IF NEEDED ANYTHING. DAUGHTER VERBALIZED UNDERSTANDING.
--- NOTE | 2016-12-20 11:06 | NUR ---
PT UP WALKING WITH PHYSICAL THERAPY. ABLE TO AMBULATE ABOUT 50 FEET WITH WALKER AND MINIMAL ASSISTANCE FROM STAFF.
--- NOTE | 2016-12-20 11:41 | NUR ---
PATIENT IS LYING ON LEFT SIDE IN BED. IS RESTING COMFORTABLY. URINATED ABT 200ML IN THE VOMIT BAGS. HE LIKES THOSE BETTER THAN THE URINAL BC HE SPILLS THE URNIAL. DAUGHTER IS BACK IN ROOM. PATIENT DENIES PAIN. DENIES FURTHER NEEDS. INSTUCTED TO CALL IF NEEDED ANYTHING. BED LOW, LOCKED, CALL LIGHT IN REACH.
[2016-12-20 12:00] VITALS: BP 118/72
--- NOTE | 2016-12-20 12:45 | NUR ---
QUIET IN ROOM N/C VOICED AT PRESENT DENIES ANY NEEDS.
--- NOTE | 2016-12-20 13:20 | NUR ---
PT LAYING IN BED ON RIGHT SIDE SLEEPING. ADMINISTERED MEDS ORDERED. DENIED NEEDS AT THIS TIME. DENIED BEING IN PAIN. BED LOW, LOCKED, CALL LIGHT IN REACH. INSTRUCTED TO CALL IF NEEDED ANYTHING. VERBALIZED UNDERSTANDING.
--- NOTE | 2016-12-20 13:43 | NUR ---
[facility] WAS COMPLAINING OF BEING TIRED SO DIDNT GO FAR THIS AFTERNOON HE DID THIS MORNING.
--- NOTE | 2016-12-20 15:49 | NUR ---
ALERTED BY MARQUEZ HUTCHINSON, THAT PT STATED HE WAS HAVING TROUBLE BREATHING. O2 AT 2L VIA NC. CURRENT O2 SAT 97%. LUNG SOUNDS DIMINISHED TO LLL, BUT CLEAR TO ALL OTHER LOBES. ORAL CARE PROVIDED, AND PROVIDED SEVERAL DRINKS OF WATER. HOB AT 90 DEGREES. WILL CONTINUE TO MONITOR CLOSELY.
[2016-12-20 15:58] VITALS: BP 100/60
--- NOTE | 2016-12-20 19:00 | NUR ---
PATIENT SLEEPING SUPINE ON FIRST STEP OVERLAY. HOB 30 DEGREES. AROUSES TO VOICE. RR SHALLOW AND UNLABORED. O2 @ 2L VIA NC. 0 S/S OF DISTRESS. STATES PAIN IS A 4/10. IV TO LEFT UPPER ARM PATENT WITH NO REDNESS OR SWELLING. TELEMETRY ON. B/A ON. SRX2. BED LOW. CALL LIGHT WITHIN REACH.
[2016-12-20 21:00] VITALS: BP 92/64
--- NOTE | 2016-12-20 21:00 | NUR ---
ASSESSMENT COMPLETE. NIGHTTIME MED GIVEN. NORCO GIVEN FOR PAIN. WILL REASSESS. PATIENT DRY AT THIS TIME. PATIENT ON RIGHT SIDE.
--- NOTE | 2016-12-21 | NUR ---
PATIENT HAD INCONTINENT EPISODE OF URINE. CHANGED GOWN AND LINENS. TURNED PATIENT TO LEFT.
[2016-12-21 01:00] VITALS: BP 93/68
[2016-12-21 05:00] VITALS: BP 101/65
[2016-12-21 05:41] LABS: BASOPHILS 0 % (0.0-2.0); EOSINOPHILS 0 % (0-7); HEMATOCRIT 32.2 % (42.0-54.0); HEMOGLOBIN 10.9 g/dL (13.5-17.5); IMMATURE GRANULOCYTES 0.3 % (0-5); LYMPHOCYTES 9.4 % (15-50); MCH 32.7 pg (26.0-34.0); MCHC 33.9 g/dL (31.0-37.0); MCV 96.7 fL (80.0-100.0); MEAN PLATELET VOLUME 9.9 fL (7.4-10.4); MONOCYTES 6.1 % (2-11); NEUTROPHILS 84.2 % (40-80); RBC 3.33 10x6/uL (4.20-6.10); RDW 14.1 % (11.5-14.5); WBC 7.2 10x3/uL (4.8-10.8)
[2016-12-21 05:49] LABS: PLATELET COUNT 212 10x3/uL (130-400)
[2016-12-21 05:53] LABS: CALC OSMOLALITY 288 mosm/kg (275-300); CALCIUM 10.2 mg/dL (8.5-10.1); CARBON DIOXIDE 22.1 mmol/L (21.0-32.0); CHLORIDE - SERUM 111 mmol/L (98-107); GLUCOSE 101 mg/dL (74-106); POTASSIUM - SERUM 3.8 mmol/L (3.5-5.1); SODIUM 141 mmol/L (136-145); UREA NITROGEN 36 mg/dL (7-18); eGFR NON AFRICAN AMERICAN 75 mL/min (90-120)
--- NOTE | 2016-12-21 07:50 | NUR ---
PT RESTING QUIETLY BUT DOES AROUSE EASILY WITH VERBAL STIMULI. ALERT AND ORIENTED TO SITUATION DAUGHTER AT BEDSIDE AT THIS ITME. ALL ADLS PER STAFF TOTAL CARE PT BLIND AND REQUIRES ASSISTANCE WITH ALL MEALS. TOOK AM MEDS WITH NO DIFFICULTY NOTED.
[2016-12-21 07:56] VITALS: BP 106/62
--- NOTE | 2016-12-21 10:53 | NUR ---
PT RESTING QUIETLY HAS BEEN UP AMBULATING WITH PHYSICAL THERAPY THIS MORNING NO ACUTE DISTRESS NOTED VOICES ALL NEEDS TO STAFF. DAUGHTER AT BEDSIDE. CALL LIGHT IN REACH BED ALARM ON AND FUNCTIONING PROPERLY.
[2016-12-21 12:42] VITALS: BP 92/58
[2016-12-21] MEDS ORDERED: XARELTO15 MG PO (14:24)
--- NOTE | 2016-12-21 15:01 | NUR ---
CM REASSESSMENT NOTE: PATIENT IS DISCHARGING BACK TO [facility] PER DAUGHTERS REQUEST - REFUSED IP REHAB. PATIENT WILL BE GOING BY FACILITY [facility] STATED PATIENT HAS BEEN SITTING UP AND COULD TOLOERATE SITTING TO [facility]
--- NOTE | 2016-12-21 15:09 | NUR ---
CM REASSESSMENT NOTE: PATIENT IS DISCHARGING BACK TO [facility] PER DAUGHTERS REQUEST - REFUSED IP REHAB. PATIENT WILL BE GOING BY FACILITY [facility] THERAP[facility] STATED PATIENT HAS BEEN SITTING UP AND COULD TOLOERATE SITTING TO [facility]
--- NOTE | 2016-12-21 15:40 | NUR ---
PT TO BE DISCHARGED BACK TO [facility] TODAY. PT RESTING QUIETLY AT THIS TIME DAUGHTER AT BEDSIDE. NO ACUTE DISTRESS NOTED VOICES ALL NEEDS CALL LIGHT IN REACH SIDE RAILS UP X 2
[2016-12-21 16:07] VITALS: BP 91/54
--- NOTE | 2016-12-21 16:11 | NUR ---
REPORT CALLED TO DAISY GUERRERO PT TRANSFERED AT THIS TIME TO WHEELCHAIR PIV D/CD PRESSURE DRESSING APPLIED. PT TRANSPORTED VIA FACILITY [facility]
== END 2016-12-21 16:14 | DRG 175 ==
LOC: D.ER 09:33 → D.MS 11:47
PROVIDERS: Emergency Medicine; Internal Medicine Pulmonary Disease; ADMIT Family Medicine
DX: I26.99 Other pulmonary embolism without acute cor pulmonale (principal); J18.9 Pneumonia, unspecified organism; J44.0 Chronic obstructive pulmonary disease with (acute) lower respiratory infection; E46 Unspecified protein-calorie malnutrition; Z68.1 Body mass index [BMI] 19.9 or less, adult; J96.11 Chronic respiratory failure with hypoxia; J44.1 Chronic obstructive pulmonary disease with (acute) exacerbation; Z66 Do not resuscitate; I25.10 Atherosclerotic heart disease of native coronary artery without angina pectoris; H35.30 Unspecified macular degeneration; H54.11 Blindness, right eye, low vision left eye; Y95 Nosocomial condition; R13.10 Dysphagia, unspecified; F17.200 Nicotine dependence, unspecified, uncomplicated